=== PATIENT | male | born 1955 | race Caucasian/White ===

== ENCOUNTER 2022-06-09 15:54 | Inpatient (IN) | payer MEDICARE, BC, SELFPAY ==
[2022-06-09] VITALS (51 sets, daily range): BP systolic 138–176; BP diastolic 64–87; PULSE 79–101; RESP 12–20; TEMP 36.6–36.9; O2SAT 97–100; BMI 31.0
--- NOTE | 2022-06-09 17:11 | CRLHL7_ITS ---
For Patients: As a result of the Century Cures Act, medical imaging exams and procedure reports are released immediately into your electronic medical record. You may view this report before your referring provider. If you have questions, please contact your health care provider. INDICATION: SOB TECHNIQUE: Chest 2 views. COMPARISON: None. FINDINGS: Cardiovascular and mediastinum: Heart size and vasculature are normal in caliber and appearance. Mediastinum is within normal limits. Lungs and pleural spaces: Lungs are clear. No sign of infiltrate or mass. No sign of pleural effusion. No pneumothorax. Bones and soft tissues: No significant findings. IMPRESSION: Unremarkable chest. Dictated by: Marquise Tidwell MD @ 06/09/2022 17:51:06 (Electronically Signed)
[2022-06-09 18:02] LABS: Chloride* 107 mmol/L (96-114)
[2022-06-09 18:03] LABS: Potassium* 3.4 mmol/L (3.6-5.1); Sodium* 141 mmol/L (135-149)
[2022-06-09 18:05] LABS: Creatinine* 0.9 mg/dL (0.5-1.5); Est. Creatinine Clearance* 72.66; Estimated Glomerular Filt Rate 94 ml/min
[2022-06-09 18:06] LABS: Blood Urea Nitrogen* 14 mg/dL (7-30); Carbon Dioxide* 25 mmol/L (20-32); Glucose* 113 mg/dL (60-115)
[2022-06-09 18:07] LABS: Calcium* 8.6 mg/dL (8.4-10.6); D Dimer Quantitative* 1.03 ug/ml (0.00-0.50)
[2022-06-09 18:10] LABS: C Reactive Protein* < 0.5 mg/dL (0.5-1.0)
[2022-06-09 18:25] LABS: Albumin* 4.4 g/dL (3.3-5.0); PCR FLU A Negative PCR FLU A (Negative); PCR FLU B Negative PCR FLU B (Negative); PCR RSV Negative PCR RSV (Negative)
[2022-06-09 18:26] LABS: Prothrombin Time 15.9 Seconds
[2022-06-09 18:28] LABS: Alkaline Phosphatase* 57 U/L (40-150); Aspartate Amino Transferase* 20 U/L (12-35); Bilirubin Direct* 0.1 mg/dL (0.0-0.5); Bilirubin Total* 1.1 mg/dL (0.1-1.5); Total Protein* 6.7 g/dL (6.0-8.3)
[2022-06-09 18:29] LABS: Alanine Aminotransferase* 18 U/L (4-50)
[2022-06-09 18:33] LABS: SARS PCR* Negative SARS-CoV-2 (Negative)
[2022-06-09 18:37] LABS: NT Pro B Type NatriureticPept* 629 PG/mL (0-125)
[2022-06-09 18:41] LABS: Troponin I* 0.02 ng/mL (0.01-0.04)
[2022-06-09 19:01] LABS: Basophils Absolute Auto 0.07 K/uL (0.00-0.30); Eosinophils Absolute Auto 0.01 K/uL (0.00-0.50); Eosinophils Percent Auto 0.1 % (0.0-7.0); Hematocrit 18.4 % (37.0-53.0); Immature Granulocytes Abs Auto 0.56 K/uL (0.00-0.30); Lymphocytes Percent Auto 8.5 % (20-44); Mean Corpuscular HGB Conc 27 gm/dL (32-36); Mean Corpuscular Hemoglobin 18 pg (26-34); Mean Corpuscular Volume 69 fL (80-100); Monocytes Percent Auto 28.7 % (0.0-11.0); Neutrophils Absolute Auto 3.73 K/uL (1.7-7.0); Neutrophils Percent Auto 53.7 % (42.0-72.0); RDW Coefficient of Variation % 19.1 % (11.5-15.5); Red Blood Count 2.66 m/uL (4.30-5.90); White Blood Count* 6.96 K/uL (4.50-11.00)
[2022-06-09 19:04] LABS: Hemoglobin* 4.9 gm/dL (13.5-17.5); Platelet Count* 41 K/uL (140-440); Slide Review Reflex Yes
[2022-06-09 19:06] LABS: Slide Review Acceptable Review (Acceptable)
--- NOTE | 2022-06-09 20:01 | ED_ITS ---
HPI - General Adult General Date Seen: 06/09/22 Chief complaint: Weakness Stated complaint: check hemiglobin according to stress test Time Seen by Provider: 06/09/22 16:32 Source: patient History of Present Illness HPI narrative: Patient is a 67-year-old male who has noted shortness of breath particularly with exertion for the past couple of weeks, getting worse. He saw his primary doctor, had been having some left jaw pain as well and a stress test was ordered which he had today. He was able to do a couple of minutes of work, but he notes that he was severely short of breath. He did not have jaw pain during the test. He says actually the jaw pain seemed to be more around his teeth actually, and he relates that to a problem with his gums. Shortness of breath has been getting worse. He denies a cough or fever. He has not had chest pain, has not had any pleuritic pain. He does note swelling in both of his legs which has been getting worse over the past few days. There is no pain in the legs although they are a little bit red. He does note that his feet have been hurting. He denies history of DVT or PE. He was at his stress test today, noted to be pretty pale, and reported that he has had black stools since yest erday. Has not had abdominal pain. Tells me that he had a colonoscopy in the past month or 2 which he said he was told was normal. He has had an upper endoscopy but it has been many years, denies history of previous GI bleeding, ulcers, or other known GI problems. 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 He also says he has been taking Aleve a little more regularly than usual, because of the jaw pain. He denies vomiting any blood. He does not take any blood thinners. He has not had any lightheadedness or fainting. He notes a previous history of prostate cancer, status post prostatectomy. He says he had an MRI and CT scan recently at [facility] looking for residual cancer. Related Data Home Medications Medication Instructions Recorded Confirmed atorvastatin 80 mg tablet 80 mg PO .Bedtime 05/22/22 06/01/22 calcium carbonate 500 mg-vitamin 1 tab PO DAILY 05/22/22 06/01/22 D3 3.125 mcg (125 unit) tablet coenzyme Q10 200 mg capsule 200 mg PO QDAY 05/22/22 06/01/22 cyanocobalamin (vitamin B-12) 5,000 mcg PO DAILY 05/22/22 06/01/22 1,000 mcg tablet escitalopram oxalate 10 mg tablet 10 mg PO DAILY 05/22/22 06/01/22 losartan 100 mg tablet 100 mg PO DAILY 05/22/22 06/01/22 magnesium oxide 400 mg (241.3 mg 400 mg PO DAILY 05/22/22 06/01/22 magnesium) tablet multivitamin 1 tab PO QDAY 05/22/22 06/01/22 omeprazole 20 mg capsule,delayed 20 mg PO DAILY 05/22/22 06/01/22 release polyethylene glycol 3350 17 17 g PO DAILY 05/22/22 06/01/22 gram/dose oral powder gabapentin 300 mg capsule 300 mg PO QDAY 06/01/22 06/01/22 Allergies Allergy/AdvReac Type Severity Reaction Status Date / Time No Known Drug Allergies Allergy Verified 06/01/22 14:32 Review of Systems Status of ROS: Reports: 10 or more systems reviewed and unremarkable except as noted in History and below [facility] Medical History (Updated 06/09/22 @ 23:20 by Samantha Pena MD) Alcoholic fatty liver Loja's esophagus Chronic obstructive pulmonary disease (2013) Chronic right-sided low back pain Erectile dysfunction Gastroesophageal reflux disease History of malignant neoplasm of prostate (03/2011) History of pneumonia (05/2020) Hyperlipidemia Hypertension Osteoarthritis of both hips Pancytopenia Seasonal allergic rhinitis Surgical History History of radical retropubic prostatectomy (07/28/11) History of vasectomy (2006) Family History Mother Heart disease Father Prostate cancer Social History (Updated 06/09/22 @ 21:24 by Marquise Contreras MD) Narrative: , 2 kids, nonsmoker, daily EtOH, [facility] Status: Former smoker How often do you have a drink containing alcohol: 4 or more times a week How many standard drinks containing alcohol do you have on a typical day: 5 or 6 How often do you have six or more drinks on one occasion: Daily or almost daily AUDIT-C Alcohol total score: 10 Non-prescribed substance use: denies use Exam Narrative: Exam Narrative: Vital signs as noted above. In general, an alert, nontoxic male. He is conversant, pale. Head: Normocephalic, atraumatic. Eyes: Pupils are equal reactive. Extraocular movements are full. Conjunctivae are pale. ENT: Mucous membranes are moist. Throat is normal. Neck: Supple without lymphadenopathy. Heart: Regular rate and rhythm. No murmur or rub. Lungs: Clear bilaterally. No increased work of breathing, crackles or wheezes. Abdomen: Soft and nontender. Protuberant. Rectal: Empty vault. Secretions heme positive. No masses. No hemorrhoids, fissure or other external abnormalities. Extremities: Well perfused. Edema in both lower extremities, faint erythema as well. Nontender to palpation. Pulses equal. Neurologic: Patient is alert and oriented to person and place. Speech is fluent. Face is symmetric. Moves all extremities equally. Affect: Normal. Skin: Warm and dry, pale. Well perfused otherwise. Const: Vital Signs, click to edit/add: Vital Signs - 24 hr 06/09/22 16:09 06/09/22 17:21 06/09/22 17:22 Temperature 98.0 F Pulse Rate 86 89 Pulse Rate [Right Pulse Oximeter] 98 Respiratory Rate 18 Blood Pressure 168/76 H Blood Pressure [Ri ght Upper Arm] 172/87 H Pulse Oximetry 98 97 97 Oxygen Delivery Me thod Room Air 06/09/22 17:30 06/09/22 17:44 06/09/22 17:45 Temperature Pulse Rate 90 101 H 91 Pulse Rate [Right Pulse Oximeter] Respiratory Rate Blood Pressure 151/79 H Blood Pressure [Ri ght Upper Arm] Pulse Oximetry 99 99 100 Oxygen Delivery Me thod 06/09/22 18:00 06/09/22 18:02 06/09/22 18:03 Temperature Pulse Rate 87 90 89 Pulse Rate [Right Pulse Oximeter] Respiratory Rate Blood Pressure 168/75 H Blood Pressure [Ri ght Upper Arm] Pulse Oximetry 98 98 98 Oxygen Delivery Me thod 06/09/22 18:30 06/09/22 18:31 06/09/22 20:01 Temperature 97.9 F Pulse Rate 88 91 86 Pulse Rate [Right Pulse Oximeter] Respiratory Rate 14 Blood Pressure 162/78 H 142/81 H Blood Pressure [Ri ght Upper Arm] Pulse Oximetry 99 98 97 Oxygen Delivery Me thod 06/09/22 20:20 06/09/22 18:32 06/09/22 19:00 Temperature 98.2 F Pulse Rate 86 92 97 Pulse Rate [Right Pulse Oximeter] Respiratory Rate 16 Blood Pressure 169/74 H Blood Pressure [Ri ght Upper Arm] Pulse Oximetry 98 98 98 Oxygen Delivery Me thod 06/09/22 19:01 06/09/22 19:30 06/09/22 19:32 Temperature Pulse Rate 96 87 87 Pulse Rate [Right Pulse Oximeter] Respiratory Rate Blood Pressure 170/78 H 160/80 H Blood Pressure [Ri ght Upper Arm] Pulse Oximetry 97 98 98 Oxygen Delivery Me thod 06/09/22 20:00 06/09/22 20:01 06/09/22 20:16 Temperature Pulse Rate 91 94 89 Pulse Rate [Right Pulse Oximeter] Respiratory Rate Blood Pressure 142/81 H 160/78 H Blood Pressure [Ri ght Upper Arm] Pulse Oximetry 99 98 99 Oxygen Delivery Me thod 06/09/22 20:25 06/09/22 20:30 06/09/22 20:32 Temperature Pulse Rate 85 87 89 Pulse Rate [Right Pulse Oximeter] Respiratory Rate Blood Pressure 169/74 H 162/74 H Blood Pressure [Ri ght Upper Arm] Pulse Oximetry 97 97 98 Oxygen Delivery Me thod 06/09/22 21:10 06/09/22 21:35 06/09/22 21:41 Temperature 98.5 F 98.2 F 98.5 F Pulse Rate 84 82 83 Pulse Rate [Right Pulse Oximeter] Respiratory Rate 12 18 18 Blood Pressure 170/79 H 175/76 H 175/76 H Blood Pressure [Ri ght Upper Arm] Pulse Oximetry 98 97 97 Oxygen Delivery Me thod 06/09/22 20:33 06/09/22 20:47 06/09/22 21:00 Temperature Pulse Rate 91 88 89 Pulse Rate [Right Pulse Oximeter] Respiratory Rate Blood Pressure 158/72 H Blood Pressure [Ri ght Upper Arm] Pulse Oximetry 98 98 97 Oxygen Delivery Me thod 06/09/22 21:02 06/09/22 21:14 06/09/22 21:17 Temperature Pulse Rate 87 87 83 Pulse Rate [Right Pulse Oximeter] Respiratory Rate Blood Pressure 176/80 H 170/79 H 159/68 H Blood Pressure [Ri ght Upper Arm] Pulse Oximetry 97 97 97 Oxygen Delivery Me thod 06/09/22 21:30 06/09/22 21:31 06/09/22 21:56 Temperature 98.3 F Pulse Rate 92 91 83 Pulse Rate [Right Pulse Oximeter] Respiratory Rate 20 Blood Pressure 175/76 H 140/71 H Blood Pressure [Ri ght Upper Arm] Pulse Oximetry 98 97 98 Oxygen Delivery Me thod 06/09/22 22:10 06/09/22 22:42 06/09/22 23:04 Temperature 97.9 F 98.5 F 98.2 F Pulse Rate 85 81 85 Pulse Rate [Right Pulse Oximeter] Respiratory Rate 18 16 18 Blood Pressure 152/64 H 163/78 H 169/82 H Blood Pressure [Ri ght Upper Arm] Pulse Oximetry 98 97 98 Oxygen Delivery Me thod Documenting provider has reviewed patient's vital signs: yes Course Course Hospital Course: Following initial evaluation, an IV was placed. He had an EKG which by my review showed a normal sinus rhythm, ventricular rate of 95 beats per minute. He has a 0.[address] depression in leads V 3 through V6, I do not have a previous EKG for comparison. Troponin was negative however. His labs returned in unusual order, apparently the cbc was misplaced and so that returned last. His hemoglobin though ultimately returned at 4.9, and platelet count was 41. Review of his records shows his last blood work to have been done in August of 2021 at which time his hemoglobin was 11.3 and platelets were 90,000. I do think he has probably had some degree of slow blood loss over a period of time, and perhaps more acutely over the past day or 2 when he developed what sounds like melena. I do not see melena on rectal exam currently however. He has not had any further stools while here in the ER. His INR is 1.2. His D-dimer did return elevated at 1.03. I am going to order Dopplers of his lower extremities given the edema I see there. However, my suspicion for pulmonary embolism as a cause for shortness of breath is rather low. He is not reporting any chest pain, he is not tachycardic or tachypneic, he is actually not hypoxic either. I think his shortness of breath is almost certainly related to his significant anemia. I did order 2 units of packed red cells as well as platelets given his thrombocytopenia in the setting of active bleeding. His BUN and creatinine are normal. His potassium is 3.4 otherwise electrolytes are normal. LFTs are actually normal as well. BNP is somewhat elevated at 629. TSH is normal. Plan at this time will be admission to the hospital for transfusion and planned endoscopy. Given recent colonoscopy without significant findings, alcohol and NSAID use, and reported melena, I suspect this is likely an upper GI bleed. There are no beds in the hospital at this time so he will remain in the emergency department overnight and hopefully there will be space in the hospital tomorrow. He has remained hemodynamically stable and without further complaints while in the emergency department. Dopplers of his bilateral lower extremities did end up showing clot in 1 of the posterior tibial veins in his right leg. Other veins were normal. At this time, I have not pursued CT scanning of the chest. Again, he does not have hypoxia, tachycardia, pleuritic chest pain, or other findings to suggest significant pulmonary embolism. Troponin is negative. I think with his thrombocytopenia, GI bleed and severe anemia, that anticoagulation at this time is not an option. I did discuss with [facility] ER physician and interventional radiologist as to whether not a [place] filter would be indicated given that he has a small amount of distal clot only, and the interventional radiologist said they would not place a Sondra filter for this. He recommended serial ultrasounds only. I did call local hospitals to see if there was any availability of beds given this additional clinical finding, but there are no available beds, and therefore patient will be admitted here. We will continue with serial ultrasounds, transfusion, endoscopy as planned. If the DVT is progressive, will need to reassess in terms of finding somewhere to have a Sondra filter placed. Consultations Consultation #1: Dr. Malin General surgery Consultation #2: [facility] Interventional Radiology Vital Signs Vital signs: Initial Vital Signs Temperature 98.0 F 06/09/22 16:09 Temperature Source Temporal Artery Scan 06/09/22 16:09 Pulse Rate 98 06/09/22 16:09 Respiratory Rate 18 06/09/22 16:09 Blood Pressure 172/87 H 06/09/22 16:09 Blood Pressure Mean 115 06/09/22 16:09 Blood Pressure Position Sitting 06/09/22 16:09 Pulse Oximetry 98 06/09/22 16:09 Oxygen Delivery Method 06/09/22 16:09 Vital Signs Temperature 98.0 F 06/09/22 16:09 Pulse Rate 98 06/09/22 16:09 Respiratory Rate 18 06/09/22 16:09 Blood Pressure 172/87 H 06/09/22 16:09 Pulse Oximetry 98 06/09/22 16:09 Oxygen Delivery Method 06/09/22 16:09 Temperature 98.2 F 06/09/22 23:04 Pulse Rate 85 06/09/22 23:04 Respiratory Rate 18 06/09/22 23:04 Blood Pressure 169/82 H 06/09/22 23:04 Pulse Oximetry 98 06/09/22 23:04 Oxygen Delivery Method 06/09/22 16:09 Medical Decision Making Lab Data Labs: Lab Results 06/09/22 06/09/22 06/09/22 Range/Units 17:30 17:30 17:30 WBC 6.96 (4.50-11.00) K/uL RBC 2.66 L (4.30-5.90) m/uL Hgb 4.9 L* (13.5-17.5) gm/dL Hct 18.4 L (37.0-53.0) % MCV 69 L (80-100) fL MCH 18 L (26-34) pg MCHC 27 L (32-36) gm/dL RDW Coeff of Poonam 19.1 H (11.5-15.5) % Plt Count 41 L* (140-440) K/uL Neut % (Auto) 53.7 (42.0-72.0) % Lymph % (Auto) 8.5 L (20-44) % [place] % (Auto) 28.7 H (0.0-11.0) % Eos % (Auto) 0.1 (0.0-7.0) % Baso % (Auto) 1.0 (0.0-3.0) % Neut # (Auto) 3.73 (1.7-7.0) K/uL Lymph # (Auto) 0.60 L (0.90-2.90) K/uL [place] # (Auto) 2.00 H (0.00-0.90) K/UL Eos # (Auto) 0.01 (0.00-0.50) K/uL Baso # (Auto) 0.07 (0.00-0.30) K/uL Abs Immat Gran (auto) 0.56 H (0.00-0.30) K/uL Imm/Tot Granulo (auto) 8.0 % Diff Slide Review Acceptable Review (Acceptable) INR (0.91-1.10) D-Dimer Quant (PE/DVT) 1.03 H (0.00-0.50) ug/ml Sodium 141 (135-149) mmol/L Potassium 3.4 L (3.6-5.1) mmol/L Chloride 107 (96-114) mmol/L Carbon Dioxide 25 (20-32) mmol/L BUN 14 (7-30) mg/dL Creatinine 0.9 (0.5-1.5) mg/dL Estimated Creat Clear 72.66 Estimated GFR 94 ml/min Glucose 113 (60-115) mg/dL Calcium 8.6 (8.4-10.6) mg/dL Total Bilirubin (0.1-1.5) mg/dL Direct Bilirubin (0.0-0.5) mg/dL AST (12-35) U/L ALT (4-50) U/L Alkaline Phosphatase (40-150) U/L Troponin I (0.01-0.04) ng/mL C-Reactive Protein < 0.5 L (0.5-1.0) mg/dL NT-Pro-B Natriuret Pep (0-125) PG/mL Total Protein (6.0-8.3) g/dL Albumin (3.3-5.0) g/dL TSH (0.270-4.200) uIU/mL SARS-CoV-2 (PCR) (Negative) Influenza Type A (PCR) (Negative) Influenza Type B (PCR) (Negative) RSV (PCR) (Negative) Blood Type Antibody Screen Crossmatch (AHG) 06/09/22 06/09/22 06/09/22 Range/Units 17:30 17:30 17:30 WBC (4.50-11.00) K/uL RBC (4.30-5.90) m/uL Hgb (13.5-17.5) gm/dL Hct (37.0-53.0) % MCV (80-100) fL MCH (26-34) pg MCHC (32-36) gm/dL RDW Coeff of Poonam (11.5-15.5) % Plt Count (140-440) K/uL Neut % (Auto) (42.0-72.0) % Lymph % (Auto) (20-44) % [place] % (Auto) (0.0-11.0) % Eos % (Auto) (0.0-7.0) % Baso % (Auto) (0.0-3.0) % Neut # (Auto) (1.7-7.0) K/uL Lymph # (Auto) (0.90-2.90) K/uL [place] # (Auto) (0.00-0.90) K/UL Eos # (Auto) (0.00-0.50) K/uL Baso # (Auto) (0.00-0.30) K/uL Abs Immat Gran (auto) (0.00-0.30) K/uL Imm/Tot Granulo (auto) % Diff Slide Review (Acceptable) INR 1.20 H (0.91-1.10) D-Dimer Quant (PE/DVT) (0.00-0.50) ug/ml Sodium (135-149) mmol/L Potassium (3.6-5.1) mmol/L Chloride (96-114) mmol/L Carbon Dioxide (20-32) mmol/L BUN (7-30) mg/dL Creatinine (0.5-1.5) mg/dL Estimated Creat Clear Estimated GFR ml/min Glucose (60-115) mg/dL Calcium (8.4-10.6) mg/dL Total Bilirubin 1.1 (0.1-1.5) mg/dL Direct Bilirubin 0.1 (0.0-0.5) mg/dL AST 20 (12-35) U/L ALT 18 (4-50) U/L Alkaline Phosphatase 57 (40-150) U/L Troponin I 0.02 (0.01-0.04) ng/mL C-Reactive Protein (0.5-1.0) mg/dL NT-Pro-B Natriuret Pep 629 H (0-125) PG/mL Total Protein 6.7 (6.0-8.3) g/dL Albumin 4.4 (3.3-5.0) g/dL TSH (0.270-4.200) uIU/mL SARS-CoV-2 (PCR) Negative SARS-CoV-2 (Negative) Influenza Type A (PCR) Negative PCR FLU A (Negative) Influenza Type B (PCR) Negative PCR FLU B (Negative) RSV (PCR) Negative PCR RSV (Negative) Blood Type Antibody Screen Crossmatch (AHG) 06/09/22 06/09/22 Range/Units 17:30 17:30 WBC (4.50-11.00) K/uL RBC (4.30-5.90) m/uL Hgb (13.5-17.5) gm/dL Hct (37.0-53.0) % MCV (80-100) fL MCH (26-34) pg MCHC (32-36) gm/dL RDW Coeff of Poonam (11.5-15.5) % Plt Count (140-440) K/uL Neut % (Auto) (42.0-72.0) % Lymph % (Auto) (20-44) % [place] % (Auto) (0.0-11.0) % Eos % (Auto) (0.0-7.0) % Baso % (Auto) (0.0-3.0) % Neut # (Auto) (1.7-7.0) K/uL Lymph # (Auto) (0.90-2.90) K/uL [place] # (Auto) (0.00-0.90) K/UL Eos # (Auto) (0.00-0.50) K/uL Baso # (Auto) (0.00-0.30) K/uL Abs Immat Gran (auto) (0.00-0.30) K/uL Imm/Tot Granulo (auto) % Diff Slide Review (Acceptable) INR (0.91-1.10) D-Dimer Quant (PE/DVT) (0.00-0.50) ug/ml Sodium (135-149) mmol/L Potassium (3.6-5.1) mmol/L Chloride (96-114) mmol/L Carbon Dioxide (20-32) mmol/L BUN (7-30) mg/dL Creatinine (0.5-1.5) mg/dL Estimated Creat Clear Estimated GFR ml/min Glucose (60-115) mg/dL Calcium (8.4-10.6) mg/dL Total Bilirubin (0.1-1.5) mg/dL Direct Bilirubin (0.0-0.5) mg/dL AST (12-35) U/L ALT (4-50) U/L Alkaline Phosphatase (40-150) U/L Troponin I (0.01-0.04) ng/mL C-Reactive Protein (0.5-1.0) mg/dL NT-Pro-B Natriuret Pep (0-125) PG/mL Total Protein (6.0-8.3) g/dL Albumin (3.3-5.0) g/dL TSH 3.380 (0.270-4.200) uIU/mL SARS-CoV-2 (PCR) (Negative) Influenza Type A (PCR) (Negative) Influenza Type B (PCR) (Negative) RSV (PCR) (Negative) Blood Type O Negative Antibody Screen NEGATIVE Crossmatch (AHG) See Detail Discharge Plan Discharge Clinical Impression: Thrombocytopenia, Calf DVT (deep venous thrombosis), Acute GI bleeding Patient Disposition: Admitted As Inpatient Condition: Improved
--- NOTE | 2022-06-09 20:05 | CRLHL7_ITS ---
For Patients: As a result of the Century Cures Act, medical imaging exams and procedure reports are released immediately into your electronic medical record. You may view this report before your referring provider. If you have questions, please contact your health care provider. INDICATION: Leg pain and swelling. TECHNIQUE: Ultrasound venous duplex bilateral lower extremity. Compression venous exam was performed using daniel-scale, color Doppler, and spectral Doppler analysis. COMPARISON: None. FINDINGS: Deep veins: DVT within 1 of 2 right posterior tibial veins. Sonographic imaging otherwise demonstrates the right and left common femoral, deep femoral, superficial femoral, popliteal, posterior tibial veins to be fully compressible with normal color Doppler blood flow. Superficial veins: Greater saphenous veins are fully compressible. No popliteal cyst. IMPRESSION: DVT within 1 of the 2 right posterior tibial veins. Findings verbally communicated with Dr. Pena at 9:27 p.m. June 09, 2022. Findings verified by read back. Dictated by Marquise Braxton MD @ 06/09/2022 9:28:07 PM (Electronically Signed)
[2022-06-09] MEDS: 0.9 % SODIUM CHLORIDE 250 ml IV ×2 (20:10→21:40)
[2022-06-09] MEDS: PANTOPRAZOLE SODIUM 40 MG INJ IVP (23:13)
[2022-06-10] VITALS (21 sets, daily range): BP systolic 145–177; BP diastolic 57–88; PULSE 74–103; RESP 13–20; TEMP 36.4–37.1; O2SAT 94–100; BMI 33.0
[2022-06-10] MEDS: 0.9 % SODIUM CHLORIDE 250 ml IV (02:00)
--- NOTE | 2022-06-10 02:30 | P.IMPN_ITS ---
Progress Note: A&P Assessment and plan (1) Acute GI bleeding: Status: Acute (2) Thrombocytopenia: Status: Acute (3) Calf DVT (deep venous thrombosis): Status: Acute Plan E hospitalist collaboration: I have discussed in detail with ED Dr. Pena. 67-year-old male admitted with anemia ABL, fatigue, right calf DVT. Patient has had some shortness of breath and left-sided jaw pain for couple weeks. He had dental evaluation and no infection of teeth but have some gum bleeding after that procedure. With jaw pain and sob and no infection in the teeth, this prompted plan for cardiac stress test which occurred today and per report no ischemic findings, but patient was quite fatigued and was pale and thus test had limitation with sob and was referred to the ED. In the ED was found to have a hemoglobin of 5. Patient did also mention to the cardiac team that he had been having some black stools over the last few days. No prior history of ulcers. He states he has had a prior EGD years ago. He states he had a colonoscopy a couple months ago. I did find in the Porphyrio system 5.67 colonoscopy in October 2021. Patient has not had any hematemesis. He reports he does drink alcohol his last drink was last evening around 7 PM. No history of withdrawal symptoms or withdrawal seizures. Due to the left jaw pain he has been taking Aleve. And he had also been started on baby aspirin for cardiac health on Wednesday. He does have thrombocytopenia, patient thinks he has had that in the past. No current nausea, vomiting, abdominal pain, chest pain. He has not had any bloody stools since admission. No fever or chills. No cough. He does get short of breath with activity. He had prostate cancer prostatectomy years ago. Laboratory/imaging in the ED: WBC 6.96, hemoglobin 4.9, hematocrit 18.4, MCV 69, platelets 41 (90 on 11/14/2020). INR 1.20. D-dimer elevated 1.03. Sodium 141, potassium 3.4, chloride 107, CO2 25, BUN 14, creatinine 0.9, glucose 113, calcium 8.6, total bilirubin 1.1, AST 20, ALT 18, alk phosphatase 57, troponin I 0.02. CRP low at less than 0.5. proBNP 629. Total protein 6.7, albumin 4.4. TSH 3.380. COVID- 19 negative. Influenza A negative. Influenza B negative. RSV negative. Chest x-ray no infiltrates or effusions. Venous duplex right below the knee DVT in 1 of 2 right posterior tibial veins. In the ED he was given 2 units packed RBCs, platelet transfusion. Telemedicine exam Vitals reviewed No apparent distress, alert, oriented x3, cooperative Head atraumatic Speech clear Follows commands, no lateralizing weakness, neurologically intact Pupils equal and reactive, no scleral icterus Lips and mouth are dry Neck trachea midline Heart regular rate and rhythm, no murmurs Lungs clear bilateral no crackles no wheezes Abdomen bowel sounds are positive, soft, nondistended, nontender for nursing palpation Lower extremities moderate pitting edema and greater on the right compared to the left and also some erythema appears less likely cellulitis and more venous stasis from edema Skin dry, pale Summary: 67-year-old male admitted from the ED for ABL anemia, right DVT, fatigue. Assessment and plan: ABL anemia Fatigue Thrombocytopenia Alcohol dependence Dyspnea Right posterior tibial vein DVT: Plan: ABL anemia, currently hemodynamically stable, no active jaqueline bloody stools seen since admission. Received packed RBC 2 units in the ED and will repeat hemoglobin. Also received pack of platelets being less than 50 and drop in Hg/bleeding. Repeat platelet level this AM. INR not significantly elevated but was 1.20 and LFTs were not elevated. But with alcohol use did empirically place the patient on Rocephin in case would have underlying esophageal varices. Planned octreotide drip until has EGD, but no drip available and only IV push thus will hold for the time being as patient is currently hemodynamically stable and not having any hematemesis and INR not significantly elevated. PPI was given in the ED and will continue twice daily. Keep n.p.o. for likely EGD today. If EGD unremarkable may need to consider colonoscopy or video capsule. Patient also has a right DVT below the knee in the posterior tibial vein and therefore lower risk for PE. ED team had reviewed with IR and IR and would not recommend any procedures with anemia and hold on anticoagulation with anemia and plan serial venous duplex once a week to monitor for any progression. Patient tells me he is very active on his feet and goes up and down stairs and has not been sedentary. He has never had a prior DVT. He had prostate cancer years ago that was treated, but with acute DVT this warrants further age-related malignancy work-up after acute anemia treated, would consider ct chest/abd/pelvis (had polyp removed on last colonoscopy). He did have COVID 1 year ago. Alcohol dependence, CIWA and thiamine initiated, monitor for withdrawl. Discussed cessation with anemia and risk of liver disease. Will hold aspirin at this time. Hold any NSAIDs such as Aleve at this time. Reported cardiac stress test negative for ischemia but limited test with sob during test. Patient has leg edema and some erythema but less likely cellulitis but more related to edema/stasis changes. Home medications reviewed and further med reconciliation in the a.m.: Atorvastatin, calcium carbonate, coenzyme Q, vitamin B12, ecitalopram, gabapentin, losartan, magnesium oxide, multivitamin, Prilosec, MiraLAX CODE STATUS: Full code Please call E hospitalist with questions Subjective Date Seen: 06/10/22 Exam Const: Vital Signs, click to edit/add: Vital Signs - 24 hr 06/09/22 16:09 06/09/22 17:21 06/09/22 17:22 Temperature 98.0 F Pulse Rate 86 89 Pulse Rate [Left P ulse Oximeter] Pulse Rate [Right Pulse Oximeter] 98 Respiratory Rate 18 Blood Pressure 168/76 H Blood Pressure [Le ft Arm] Blood Pressure [Ri ght Upper Arm] 172/87 H Pulse Oximetry 98 97 97 Oxygen Delivery Me thod Room Air 06/09/22 17:30 06/09/22 17:44 06/09/22 17:45 Temperature Pulse Rate 90 101 H 91 Pulse Rate [Left P ulse Oximeter] Pulse Rate [Right Pulse Oximeter] Respiratory Rate Blood Pressure 151/79 H Blood Pressure [Le ft Arm] Blood Pressure [Ri ght Upper Arm] Pulse Oximetry 99 99 100 Oxygen Delivery Me thod 06/09/22 18:00 06/09/22 18:02 06/09/22 18:03 Temperature Pulse Rate 87 90 89 Pulse Rate [Left P ulse Oximeter] Pulse Rate [Right Pulse Oximeter] Respiratory Rate Blood Pressure 168/75 H Blood Pressure [Le ft Arm] Blood Pressure [Ri ght Upper Arm] Pulse Oximetry 98 98 98 Oxygen Delivery Me thod 06/09/22 18:30 06/09/22 18:31 06/09/22 20:01 Temperature 97.9 F Pulse Rate 88 91 86 Pulse Rate [Left P ulse Oximeter] Pulse Rate [Right Pulse Oximeter] Respiratory Rate 14 Blood Pressure 162/78 H 142/81 H Blood Pressure [Le ft Arm] Blood Pressure [Ri ght Upper Arm] Pulse Oximetry 99 98 97 Oxygen Delivery Me thod 06/09/22 20:20 06/09/22 18:32 06/09/22 19:00 Temperature 98.2 F Pulse Rate 86 92 97 Pulse Rate [Left P ulse Oximeter] Pulse Rate [Right Pulse Oximeter] Respiratory Rate 16 Blood Pressure 169/74 H Blood Pressure [Le ft Arm] Blood Pressure [Ri ght Upper Arm] Pulse Oximetry 98 98 98 Oxygen Delivery Me thod 06/09/22 19:01 06/09/22 19:30 06/09/22 19:32 Temperature Pulse Rate 96 87 87 Pulse Rate [Left P ulse Oximeter] Pulse Rate [Right Pulse Oximeter] Respiratory Rate Blood Pressure 170/78 H 160/80 H Blood Pressure [Le ft Arm] Blood Pressure [Ri ght Upper Arm] Pulse Oximetry 97 98 98 Oxygen Delivery Me thod 06/09/22 20:00 06/09/22 20:01 06/09/22 20:16 Temperature Pulse Rate 91 94 89 Pulse Rate [Left P ulse Oximeter] Pulse Rate [Right Pulse Oximeter] Respiratory Rate Blood Pressure 142/81 H 160/78 H Blood Pressure [Le ft Arm] Blood Pressure [Ri ght Upper Arm] Pulse Oximetry 99 98 99 Oxygen Delivery Me thod 06/09/22 20:25 06/09/22 20:30 06/09/22 20:32 Temperature Pulse Rate 85 87 89 Pulse Rate [Left P ulse Oximeter] Pulse Rate [Right Pulse Oximeter] Respiratory Rate Blood Pressure 169/74 H 162/74 H Blood Pressure [Le ft Arm] Blood Pressure [Ri ght Upper Arm] Pulse Oximetry 97 97 98 Oxygen Delivery Me thod 06/09/22 21:10 06/09/22 21:35 06/09/22 21:41 Temperature 98.5 F 98.2 F 98.5 F Pulse Rate 84 82 83 Pulse Rate [Left P ulse Oximeter] Pulse Rate [Right Pulse Oximeter] Respiratory Rate 12 18 18 Blood Pressure 170/79 H 175/76 H 175/76 H Blood Pressure [Le ft Arm] Blood Pressure [Ri ght Upper Arm] Pulse Oximetry 98 97 97 Oxygen Delivery Me thod 06/09/22 20:33 06/09/22 20:47 06/09/22 21:00 Temperature Pulse Rate 91 88 89 Pulse Rate [Left P ulse Oximeter] Pulse Rate [Right Pulse Oximeter] Respiratory Rate Blood Pressure 158/72 H Blood Pressure [Le ft Arm] Blood Pressure [Ri ght Upper Arm] Pulse Oximetry 98 98 97 Oxygen Delivery Me thod 06/09/22 21:02 06/09/22 21:14 06/09/22 21:17 Temperature Pulse Rate 87 87 83 Pulse Rate [Left P ulse Oximeter] Pulse Rate [Right Pulse Oximeter] Respiratory Rate Blood Pressure 176/80 H 170/79 H 159/68 H Blood Pressure [Le ft Arm] Blood Pressure [Ri ght Upper Arm] Pulse Oximetry 97 97 97 Oxygen Delivery Me thod 06/09/22 21:30 06/09/22 21:31 06/09/22 21:56 Temperature 98.3 F Pulse Rate 92 91 83 Pulse Rate [Left P ulse Oximeter] Pulse Rate [Right Pulse Oximeter] Respiratory Rate 20 Blood Pressure 175/76 H 140/71 H Blood Pressure [Le ft Arm] Blood Pressure [Ri ght Upper Arm] Pulse Oximetry 98 97 98 Oxygen Delivery Me thod 06/09/22 22:10 06/09/22 22:42 06/09/22 23:04 Temperature 97.9 F 98.5 F 98.2 F Pulse Rate 85 81 85 Pulse Rate [Left P ulse Oximeter] Pulse Rate [Right Pulse Oximeter] Respiratory Rate 18 16 18 Blood Pressure 152/64 H 163/78 H 169/82 H Blood Pressure [Le ft Arm] Blood Pressure [Ri ght Upper Arm] Pulse Oximetry 98 97 98 Oxygen Delivery Me thod 06/09/22 23:33 06/09/22 21:32 06/09/22 21:47 Temperature 98.3 F Pulse Rate 81 88 84 Pulse Rate [Left P ulse Oximeter] Pulse Rate [Right Pulse Oximeter] Respiratory Rate 16 Blood Pressure 168/79 H 159/65 H Blood Pressure [Le ft Arm] Blood Pressure [Ri ght Upper Arm] Pulse Oximetry 97 98 97 Oxygen Delivery Me thod 06/09/22 21:56 06/09/22 22:00 06/09/22 22:02 Temperature Pulse Rate 92 85 87 Pulse Rate [Left P ulse Oximeter] Pulse Rate [Right Pulse Oximeter] Respiratory Rate Blood Pressure 140/71 H 138/69 Blood Pressure [Le ft Arm] Blood Pressure [Ri ght Upper Arm] Pulse Oximetry 97 97 98 Oxygen Delivery Me thod 06/09/22 22:11 06/09/22 22:16 06/09/22 22:30 Temperature Pulse Rate 83 83 80 Pulse Rate [Left P ulse Oximeter] Pulse Rate [Right Pulse Oximeter] Respiratory Rate Blood Pressure 152/64 H 165/76 H Blood Pressure [Le ft Arm] Blood Pressure [Ri ght Upper Arm] Pulse Oximetry 97 97 97 Oxygen Delivery Me thod 06/09/22 22:32 06/09/22 22:46 06/09/22 23:02 Temperature Pulse Rate 83 82 93 Pulse Rate [Left P ulse Oximeter] Pulse Rate [Right Pulse Oximeter] Respiratory Rate Blood Pressure 154/72 H 163/78 H Blood Pressure [Le ft Arm] Blood Pressure [Ri ght Upper Arm] Pulse Oximetry 98 97 97 Oxygen Delivery Me thod 06/09/22 23:04 06/09/22 23:30 06/09/22 23:31 Temperature Pulse Rate 81 79 80 Pulse Rate [Left P ulse Oximeter] Pulse Rate [Right Pulse Oximeter] Respiratory Rate Blood Pressure 169/82 H 168/79 H Blood Pressure [Le ft Arm] Blood Pressure [Ri ght Upper Arm] Pulse Oximetry 98 97 97 Oxygen Delivery Me thod 06/10/22 00:00 06/10/22 00:02 06/10/22 00:51 Temperature 97.8 F Pulse Rate 77 84 Pulse Rate [Left P ulse Oximeter] 83 Pulse Rate [Right Pulse Oximeter] Respiratory Rate 20 Blood Pressure 169/88 H Blood Pressure [Le ft Arm] 174/86 H Blood Pressure [Ri ght Upper Arm] Pulse Oximetry 94 95 97 Oxygen Delivery Me thod Room Air 06/10/22 02:08 Temperature 97.8 F Pulse Rate 80 Pulse Rate [Left P ulse Oximeter] Pulse Rate [Right Pulse Oximeter] Respiratory Rate 18 Blood Pressure 159/77 H Blood Pressure [Le ft Arm] Blood Pressure [Ri ght Upper Arm] Pulse Oximetry 96 Oxygen Delivery Me thod Labs Labs: Laboratory Results - last 24 hr 06/09/22 06/09/22 06/09/22 17:30 17:30 17:30 WBC 6.96 RBC 2.66 L Hgb 4.9 L* Hct 18.4 L MCV 69 L MCH 18 L MCHC 27 L RDW Coeff of Poonam 19.1 H Plt Count 41 L* Neut % (Auto) 53.7 Lymph % (Auto) 8.5 L Woodruff % (Auto) 28.7 H Eos % (Auto) 0.1 Baso % (Auto) 1.0 Neut # (Auto) 3.73 Lymph # (Auto) 0.60 L Woodruff # (Auto) 2.00 H Eos # (Auto) 0.01 Baso # (Auto) 0.07 Abs Immat Gran (auto) 0.56 H Imm/Tot Granulo (auto) 8.0 Diff Slide Review Acceptable Review INR D-Dimer Quant (PE/DVT) 1.03 H Sodium 141 Potassium 3.4 L Chloride 107 Carbon Dioxide 25 BUN 14 Creatinine 0.9 Estimated Creat Clear 72.66 Estimated GFR 94 Glucose 113 Calcium 8.6 Total Bilirubin Direct Bilirubin AST ALT Alkaline Phosphatase Troponin I C-Reactive Protein < 0.5 L NT-Pro-B Natriuret Pep Total Protein Albumin TSH SARS-CoV-2 (PCR) Influenza Type A (PCR) Influenza Type B (PCR) RSV (PCR) Blood Type Antibody Screen Crossmatch ([facility]) 06/09/22 06/09/22 06/09/22 17:30 17:30 17:30 WBC RBC Hgb Hct MCV MCH MCHC RDW Coeff of [place]am Plt Count Neut % (Auto) Lymph % (Auto) Woodruff % (Auto) Eos % (Auto) Baso % (Auto) Neut # (Auto) Lymph # (Auto) Woodruff # (Auto) Eos # (Auto) Baso # (Auto) Abs Immat Gran (auto) Imm/Tot Granulo (auto) Diff Slide Review INR 1.20 H D-Dimer Quant (PE/DVT) Sodium Potassium Chloride Carbon Dioxide BUN Creatinine Estimated Creat Clear Estimated GFR Glucose Calcium Total Bilirubin 1.1 Direct Bilirubin 0.1 AST 20 ALT 18 Alkaline Phosphatase 57 Troponin I 0.02 C-Reactive Protein NT-Pro-B Natriuret Pep 629 H Total Protein 6.7 Albumin 4.4 TSH SARS-CoV-2 (PCR) Negative SARS-CoV-2 Influenza Type A (PCR) Negative PCR FLU A Influenza Type B (PCR) Negative PCR FLU B RSV (PCR) Negative PCR RSV Blood Type Antibody Screen Crossmatch ([facility]) 06/09/22 06/09/22 17:30 17:30 WBC RBC Hgb Hct MCV MCH MCHC RDW Coeff of P[place]am Plt Count Neut % (Auto) Lymph % (Auto) Woodruff % (Auto) Eos % (Auto) Baso % (Auto) Neut # (Auto) Lymph # (Auto) Woodruff # (Auto) Eos # (Auto) Baso # (Auto) Abs Immat Gran (auto) Imm/Tot Granulo (auto) Diff Slide Review INR D-Dimer Quant (PE/DVT) Sodium Potassium Chloride Carbon Dioxide BUN Creatinine Estimated Creat Clear Estimated GFR Glucose Calcium Total Bilirubin Direct Bilirubin AST ALT Alkaline Phosphatase Troponin I C-Reactive Protein NT-Pro-B Natriuret Pep Total Protein Albumin TSH 3.380 SARS-CoV-2 (PCR) Influenza Type A (PCR) Influenza Type B (PCR) RSV (PCR) Blood Type O Negative Antibody Screen NEGATIVE Crossmatch ([facility]) See Detail
[2022-06-10] MEDS: 0.9 % SODIUM CHLORIDE 1000 ml 1,000 ML 50 ML IV (03:50)
[2022-06-10] MEDS: cefTRIAXone 1 GM in 0.9 % SODIUM CHLORIDE Mini-bag 100 ML IVPB (03:50)
--- NOTE | 2022-06-10 05:43 | PC.NURSE ---
Admission note: Pt arrived at the unit at 0040 on W/C accompanied by a staff member from ER. Conscious, alert and oriented on arrival. Denied pain, SOB, N/V. 1 Pint of platelet set up as prescribed. No s/s of bleeding noted. Pt is independent in room. NPO status maintained for possible endoscopy today. Pt oriented to room and educated on hospital protocols. Due treatment given.
--- NOTE | 2022-06-10 07:48 | PM.IMHP1 ---
Hospitalist- H&P: HPI History of Present Illness Date Seen: 06/10/22 Chief complaint: check hemiglobin according to stress test Narrative: Jesus Elder is a 67 year old male who presented to the ER for severe dyspnea noted during outpatient stress test. Patient endorses feeling poorly for the last 1-2 weeks. He started having intermittent dyspnea and LE edema about 7-10 days ago. Saw PCP (Ben), started ASA and scheduled stress test. Then began having significant fatigue and worsening dyspnea, progressed in the last 24 hours (couldn't even tie his own shoes without dyspnea). Over the past 5-7 days, started noting melena. No BRBPR, reassuring colonscopy at [facility] in October 2021. Yesterday, presented for his stress test, which was aborted for dyspnea, then patient was sent to ED. ER Course and Findings: - Hgb 4.9, transfused 2U PRBCs - platelets 41, transfused 1U platelets - started on PPI - LE ultrasound obtained given lower extremity edema, noting DVT within 1 of the 2 right posterior tibial veins - Dr. Pena, EM physician, discussed the case with Interventional Radiology at [facility], who recommend serial ultrasounds since anticoagulation is contraindicated at this time Admitted overnight by [facility] telehospitalist. This morning, patient is feeling better after transfusion. He denies abdominal pain or chest pain. He has no dyspnea at rest. Has not had any BMs since admission. No vomiting. His PCP is Dr. Contreras locally. Past medical, surgical, and social history updated below. 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 Jennifer and/or Jesus's children would be medical decision makers if needed (2 adult children in [place]). Nonsmoker, drinks daily, sometimes 10+ drinks in 1 day. No known history of ETOH withdrawal. Requests Full Code status. Review of Systems Status of ROS: Reports: 10 or more systems reviewed and unremarkable except as noted in History and below Narrative: Mild discomfort LUQ. No CP. Concern for ESTEVAN from PCP given daytime somnolence, will f/u as an outpatient for this. [facility] Medical History (Updated 06/10/22 @ 14:02 by Angie Valles MD) Alcoholic fatty liver Loja's esophagus Chronic obstructive pulmonary disease (2014) Chronic right-sided low back pain Erectile dysfunction Gastroesophageal reflux disease History of malignant neoplasm of prostate (03/2011) History of pneumonia (05/2020) Hyperlipidemia Hypertension Microcytic anemia Osteoarthritis of both hips Pancytopenia Seasonal allergic rhinitis Surgical History History of radical retropubic prostatectomy (07/28/11) History of vasectomy (2006) Family History Mother Heart disease Father Prostate cancer Social History (Updated 06/09/22 @ 21:24 by Marquise Contreras MD) Narrative: , 2 kids, 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, 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, 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[employer] Highest level of school completed/degree received: some college, no degree Smoking Status: Former smoker Second hand tobacco smoke exposure: No How often do you have a drink containing alcohol: 4 or more times a week Alcohol type: beer Alcohol type details: Cocktail How many standard drinks containing alcohol do you have on a typical day: 5 or 6 How often do you have six or more drinks on one occasion: Daily or almost daily AUDIT-C Alcohol total score: 10 Non-prescribed substance use: denies use Caffeine: No service: No Meds Home Medications and Allergies Home Medications Medication Instructions Recorded Confirmed Type atorvastatin 80 mg tablet 80 mg PO HS 05/22/22 06/10/22 History calcium carbonate 500 mg-vitamin 1 tab PO DAILY 05/22/22 06/10/22 History D3 3.125 mcg (125 unit) tablet coenzyme Q10 200 mg capsule 200 mg PO QDAY 05/22/22 06/10/22 History cyanocobalamin (vitamin B-12) 5,000 mcg PO DAILY 05/22/22 06/10/22 History 1,000 mcg tablet escitalopram oxalate 10 mg tablet 10 mg PO DAILY 05/22/22 06/10/22 History losartan 100 mg tablet 100 mg PO DAILY 05/22/22 06/10/22 History magnesium oxide 400 mg (241.3 mg 400 mg PO DAILY 05/22/22 06/10/22 History magnesium) tablet multivitamin 1 tab PO QDAY 05/22/22 06/10/22 History omeprazole 20 mg capsule,delayed 20 mg PO DAILY 05/22/22 06/10/22 History release polyethylene glycol 3350 17 17 g PO DAILY 05/22/22 06/10/22 History gram/dose oral powder gabapentin 300 mg capsule 300 mg PO QDAY 06/01/22 06/10/22 History Allergies Allergy/AdvReac Type Severity Reaction Status Date / Time No Known Drug Allergies Allergy Verified 06/10/22 13:55 Exam Narrative: Exam Narrative: GEN: Alert HEENT: Normal external ears, EOMIs bilaterally, + conjunctival pallor CV: RRR, No concerning murmurs, rubs, or gallops R: LCTA bilaterally without concerning wheezing, rales, or rhonchi, air movement adequate Ab: no ttp, + hepatomegaly Ext: + edema BLE Skin: No concerning skin lesions or rashes on exposed skin Neuro: Nonfocal Psych: Appropriate Const: Vital Signs, click to edit/add: Vital Signs - 24 hr 06/09/22 16:09 06/09/22 17:21 06/09/22 17:22 Temperature 98.0 F Pulse Rate 86 89 Pulse Rate [Left P ulse Oximeter] Pulse Rate [Right Pulse Oximeter] 98 Respiratory Rate 18 Blood Pressure 168/76 H Blood Pressure [Le ft Arm] Blood Pressure [Ri ght Upper Arm] 172/87 H Pulse Oximetry 98 97 97 Oxygen Delivery Me od Room Air 06/09/22 17:30 06/09/22 17:44 06/09/22 17:45 Temperature Pulse Rate 90 101 H 91 Pulse Rate [Left P ulse Oximeter] Pulse Rate [Right Pulse Oximeter] Respiratory Rate Blood Pressure 151/79 H Blood Pressure [Le ft Arm] Blood Pressure [Ri ght Upper Arm] Pulse Oximetry 99 99 100 Oxygen Delivery Me thod 06/09/22 18:00 06/09/22 18:02 06/09/22 18:03 Temperature Pulse Rate 87 90 89 Pulse Rate [Left P ulse Oximeter] Pulse Rate [Right Pulse Oximeter] Respiratory Rate Blood Pressure 168/75 H Blood Pressure [Le ft Arm] Blood Pressure [Ri ght Upper Arm] Pulse Oximetry 98 98 98 Oxygen Delivery Me thod 06/09/22 18:30 06/09/22 18:31 06/09/22 20:01 Temperature 97.9 F Pulse Rate 88 91 86 Pulse Rate [Left P ulse Oximeter] Pulse Rate [Right Pulse Oximeter] Respiratory Rate 14 Blood Pressure 162/78 H 142/81 H Blood Pressure [Le ft Arm] Blood Pressure [Ri ght Upper Arm] Pulse Oximetry 99 98 97 Oxygen Delivery Me thod 06/09/22 20:20 06/09/22 18:32 06/09/22 19:00 Temperature 98.2 F Pulse Rate 86 92 97 Pulse Rate [Left P ulse Oximeter] Pulse Rate [Right Pulse Oximeter] Respiratory Rate 16 Blood Pressure 169/74 H Blood Pressure [Le ft Arm] Blood Pressure [Ri ght Upper Arm] Pulse Oximetry 98 98 98 Oxygen Delivery Me thod 06/09/22 19:01 06/09/22 19:30 06/09/22 19:32 Temperature Pulse Rate 96 87 87 Pulse Rate [Left P ulse Oximeter] Pulse Rate [Right Pulse Oximeter] Respiratory Rate Blood Pressure 170/78 H 160/80 H Blood Pressure [Le ft Arm] Blood Pressure [Ri ght Upper Arm] Pulse Oximetry 97 98 98 Oxygen Delivery Me thod 06/09/22 20:00 06/09/22 20:01 06/09/22 20:16 Temperature Pulse Rate 91 94 89 Pulse Rate [Left P ulse Oximeter] Pulse Rate [Right Pulse Oximeter] Respiratory Rate Blood Pressure 142/81 H 160/78 H Blood Pressure [Le ft Arm] Blood Pressure [Ri ght Upper Arm] Pulse Oximetry 99 98 99 Oxygen Delivery Me thod 06/09/22 20:25 06/09/22 20:30 06/09/22 20:32 Temperature Pulse Rate 85 87 89 Pulse Rate [Left P ulse Oximeter] Pulse Rate [Right Pulse Oximeter] Respiratory Rate Blood Pressure 169/74 H 162/74 H Blood Pressure [Le ft Arm] Blood Pressure [Ri ght Upper Arm] Pulse Oximetry 97 97 98 Oxygen Delivery Me thod 06/09/22 21:10 06/09/22 21:35 06/09/22 21:41 Temperature 98.5 F 98.2 F 98.5 F Pulse Rate 84 82 83 Pulse Rate [Left P ulse Oximeter] Pulse Rate [Right Pulse Oximeter] Respiratory Rate 12 18 18 Blood Pressure 170/79 H 175/76 H 175/76 H Blood Pressure [Le ft Arm] Blood Pressure [Ri ght Upper Arm] Pulse Oximetry 98 97 97 Oxygen Delivery Me thod 06/09/22 20:33 06/09/22 20:47 06/09/22 21:00 Temperature Pulse Rate 91 88 89 Pulse Rate [Left P ulse Oximeter] Pulse Rate [Right Pulse Oximeter] Respiratory Rate Blood Pressure 158/72 H Blood Pressure [Le ft Arm] Blood Pressure [Ri ght Upper Arm] Pulse Oximetry 98 98 97 Oxygen Delivery Me thod 06/09/22 21:02 06/09/22 21:14 06/09/22 21:17 Temperature Pulse Rate 87 87 83 Pulse Rate [Left P ulse Oximeter] Pulse Rate [Right Pulse Oximeter] Respiratory Rate Blood Pressure 176/80 H 170/79 H 159/68 H Blood Pressure [Le ft Arm] Blood Pressure [Ri ght Upper Arm] Pulse Oximetry 97 97 97 Oxygen Delivery Me thod 06/09/22 21:30 06/09/22 21:31 06/09/22 21:56 Temperature 98.3 F Pulse Rate 92 91 83 Pulse Rate [Left P ulse Oximeter] Pulse Rate [Right Pulse Oximeter] Respiratory Rate 20 Blood Pressure 175/76 H 140/71 H Blood Pressure [Le ft Arm] Blood Pressure [Ri ght Upper Arm] Pulse Oximetry 98 97 98 Oxygen Delivery Me thod 06/09/22 22:10 06/09/22 22:42 06/09/22 23:04 Temperature 97.9 F 98.5 F 98.2 F Pulse Rate 85 81 85 Pulse Rate [Left P ulse Oximeter] Pulse Rate [Right Pulse Oximeter] Respiratory Rate 18 16 18 Blood Pressure 152/64 H 163/78 H 169/82 H Blood Pressure [Le ft Arm] Blood Pressure [Ri ght Upper Arm] Pulse Oximetry 98 97 98 Oxygen Delivery Me thod 06/09/22 23:33 06/09/22 21:32 06/09/22 21:47 Temperature 98.3 F Pulse Rate 81 88 84 Pulse Rate [Left P ulse Oximeter] Pulse Rate [Right Pulse Oximeter] Respiratory Rate 16 Blood Pressure 168/79 H 159/65 H Blood Pressure [Le ft Arm] Blood Pressure [Ri ght Upper Arm] Pulse Oximetry 97 98 97 Oxygen Delivery Me thod 06/09/22 21:56 06/09/22 22:00 06/09/22 22:02 Temperature Pulse Rate 92 85 87 Pulse Rate [Left P ulse Oximeter] Pulse Rate [Right Pulse Oximeter] Respiratory Rate Blood Pressure 140/71 H 138/69 Blood Pressure [Le ft Arm] Blood Pressure [Ri ght Upper Arm] Pulse Oximetry 97 97 98 Oxygen Delivery Me thod 06/09/22 22:11 06/09/22 22:16 06/09/22 22:30 Temperature Pulse Rate 83 83 80 Pulse Rate [Left P ulse Oximeter] Pulse Rate [Right Pulse Oximeter] Respiratory Rate Blood Pressure 152/64 H 165/76 H Blood Pressure [Le ft Arm] Blood Pressure [Ri ght Upper Arm] Pulse Oximetry 97 97 97 Oxygen Delivery Me thod 06/09/22 22:32 06/09/22 22:46 06/09/22 23:02 Temperature Pulse Rate 83 82 93 Pulse Rate [Left P ulse Oximeter] Pulse Rate [Right Pulse Oximeter] Respiratory Rate Blood Pressure 154/72 H 163/78 H Blood Pressure [Le ft Arm] Blood Pressure [Ri ght Upper Arm] Pulse Oximetry 98 97 97 Oxygen Delivery Me thod 06/09/22 23:04 06/09/22 23:30 06/09/22 23:31 Temperature Pulse Rate 81 79 80 Pulse Rate [Left P ulse Oximeter] Pulse Rate [Right Pulse Oximeter] Respiratory Rate Blood Pressure 169/82 H 168/79 H Blood Pressure [Le ft Arm] Blood Pressure [Ri ght Upper Arm] Pulse Oximetry 98 97 97 Oxygen Delivery Me thod 06/10/22 00:00 06/10/22 00:02 06/10/22 00:51 Temperature 97.8 F Pulse Rate 77 84 Pulse Rate [Left P ulse Oximeter] 83 Pulse Rate [Right Pulse Oximeter] Respiratory Rate 20 Blood Pressure 169/88 H Blood Pressure [Le ft Arm] 174/86 H Blood Pressure [Ri ght Upper Arm] Pulse Oximetry 94 95 97 Oxygen Delivery Me thod Room Air 06/10/22 02:08 06/10/22 02:31 06/10/22 02:40 Temperature 97.8 F 97.8 F 97.9 F Pulse Rate 80 76 79 Pulse Rate [Left P ulse Oximeter] Pulse Rate [Right Pulse Oximeter] Respiratory Rate 18 18 18 Blood Pressure 159/77 H 156/80 H 166/78 H Blood Pressure [Le ft Arm] Blood Pressure [Ri ght Upper Arm] Pulse Oximetry 96 96 96 Oxygen Delivery Me thod 06/10/22 02:58 06/10/22 02:35 06/10/22 03:16 Temperature 97.8 F 97.8 F 97.8 F Pulse Rate 75 78 Pulse Rate [Left P ulse Oximeter] 76 Pulse Rate [Right Pulse Oximeter] Respiratory Rate 18 18 18 Blood Pressure 167/81 H 159/77 H Blood Pressure [Le ft Arm] 167/81 H Blood Pressure [Ri ght Upper Arm] Pulse Oximetry 96 96 95 Oxygen Delivery Me thod Room Air Hospitalist - H&P: Result Labs Labs: Short CBC 06/09/22 Range/Units 17:30 WBC 6.96 (4.50-11.00) K/uL Hgb 4.9 L* (13.5-17.5) gm/dL Hct 18.4 L (37.0-53.0) % Plt Count 41 L* (140-440) K/uL BMP 06/09/22 17:30 Sodium 141 Potassium 3.4 L Chloride 107 Carbon Dioxide 25 BUN 14 Creatinine 0.9 Glucose 113 Calcium 8.6 Cardiac Enzymes 06/09/22 Range/Units 17:30 Troponin I 0.02 (0.01-0.04) ng/mL Liver Function 06/09/22 Range/Units 17:30 Total Bilirubin 1.1 (0.1-1.5) mg/dL Direct Bilirubin 0.1 (0.0-0.5) mg/dL AST 20 (12-35) U/L ALT 18 (4-50) U/L Alkaline Phosphatase 57 (40-150) U/L Albumin 4.4 (3.3-5.0) g/dL Assessment and Plan Assessment and plan (1) Acute GI bleeding: Problem comment: - EGD today with Dr. Augustin of General Surgery Status: Acute (2) ELLSWORTH (dyspnea on exertion): Problem comment: - likely secondary to profound anemia no acute findings noted on limited stress test 06/09/22 - given symptoms and DVT, will obtain CT PE. Plan pending results Status: Acute (3) Calf DVT (deep venous thrombosis): Problem comment: - R posterior tibial - in the emergency room, physician discussed case with IR, who recommended serial ultrasounds since anticoagulation contraindicated at this time - if repeat ultrasound tomorrow exhibits extension of DVT, will need to discuss case with IR again Status: Acute (4) Thrombocytopenia: Problem comment: - likely related to chronic liver disease Status: Acute (5) Alcoholic fatty liver: Status: Acute (6) Loja's esophagus: Problem comment: - history of this, also noted on 06/10/22 EGD Status: Acute (7) Microcytic anemia: Problem comment: - 2/2 acute GI bleed Status: Acute (8) Alcohol abuse, daily use: Status: Acute Plan - admit to inpatient - follow hemoglobin and transfuse with goal Hgb > 8 - defer anticoagulation for DVT at this time given acute GI bleed, anemia, thrombocytopenia - if + for PE, will seek expert consultation regarding risks and benefits of anticoagulation - recommend complete alcohol cessation - patient requests full code status
[2022-06-10 08:18] LABS: Basophils Absolute Auto 0.09 K/uL (0.00-0.30); Hematocrit 24.2 % (37.0-53.0); Immature Granulocytes Abs Auto 0.74 K/uL (0.00-0.30); Immature Granulocytes Pct Auto 8.2 %; Lymphocytes Percent Auto 8.6 % (20-44); Mean Corpuscular HGB Conc 29 gm/dL (32-36); Mean Corpuscular Hemoglobin 21 pg (26-34); Mean Corpuscular Volume 74 fL (80-100); Monocytes Percent Auto 29.4 % (0.0-11.0); Neutrophils Absolute Auto 4.78 K/uL (1.7-7.0); Neutrophils Percent Auto 52.8 % (42.0-72.0); Red Blood Count 3.28 m/uL (4.30-5.90); White Blood Count* 9.05 K/uL (4.50-11.00)
[2022-06-10 08:33] LABS: Albumin* 4.2 g/dL (3.3-5.0); Chloride* 110 mmol/L (96-114)
[2022-06-10 08:34] LABS: Hemoglobin* 6.9 gm/dL (13.5-17.5); Platelet Count* 39 K/uL (140-440); Potassium* 3.3 mmol/L (3.6-5.1); Slide Review Reflex Yes; Sodium* 142 mmol/L (135-149)
[2022-06-10 08:36] LABS: Alkaline Phosphatase* 52 U/L (40-150); Aspartate Amino Transferase* 21 U/L (12-35); Bilirubin Total* 1.4 mg/dL (0.1-1.5); Blood Urea Nitrogen* 11 mg/dL (7-30); Carbon Dioxide* 22 mmol/L (20-32); Creatinine* 0.8 mg/dL (0.5-1.5); Est. Creatinine Clearance* 72.66; Estimated Glomerular Filt Rate 98 ml/min; INR 1.19 (0.91-1.10); Prothrombin Time 15.8 Seconds; Total Protein* 6.6 g/dL (6.0-8.3)
[2022-06-10 08:37] LABS: Alanine Aminotransferase* 17 U/L (4-50); Calcium* 8.2 mg/dL (8.4-10.6); Glucose* 112 mg/dL (60-115)
[2022-06-10] MEDS: PANTOPRAZOLE SODIUM 40 MG INJ IVP (09:29)
[2022-06-10] MEDS: THIAMINE 250 MG in 0.9 % SODIUM CHLORIDE 100 ml 100 ML 102.5 MG IVPB (10:06)
--- NOTE | 2022-06-10 10:11 | CRLHL7_ITS ---
For Patients: As a result of the Century Cures Act, medical imaging exams and procedure reports are released immediately into your electronic medical record. You may view this report before your referring provider. If you have questions, please contact your health care provider. INDICATION: Dyspnea. TECHNIQUE: CT chest PE was acquired with 95 mL Isovue 370 IV contrast. Coronal and sagittal reformats were generated. COMPARISON: None. FINDINGS: Pulmonary arteries: The quality of enhancement of the pulmonary arteries is adequate. No filling defects to suggest pulmonary emboli. No findings of pulmonary artery hypertension. Thyroid: Unremarkable. Thoracic lymph nodes: No enlarged supraclavicular, mediastinal, hilar, or axillary lymph nodes. Mediastinum and esophagus: Unremarkable. Heart and vasculature: Unremarkable. Lungs: Bibasilar patchy ground-glass opacities are likely relaxation atelectasis associated with the pleural effusions. No focal consolidations. Pleura: Small bilateral pleural effusions, right larger than left. Chest wall: Unremarkable. Upper abdomen: No acute or significant findings. Calcifications in the spleen are likely granulomas. Bones: Unremarkable for age. IMPRESSION: 1. No pulmonary embolism. 2. Except for mild atelectasis, clear lungs. 3. Small bilateral pleural effusions, right larger than left. Please note that all CT scans at this facility use dose modulation, iterative reconstruction, and/or weight-based dosing when appropriate to reduce radiation dose to as low as reasonably achievable. Dictated by Elmer Kidd MD @ 06/10/2022 2:43:30 PM (Electronically Signed)
[2022-06-10] MEDS: POTASSIUM CHLORIDE 10 MEQ/100 ML PIGGYBACK 100 MEQ IVPB ×2 (11:22→13:18)
[2022-06-10 11:47] LABS: Slide Review Acceptable Review (Acceptable)
--- NOTE | 2022-06-10 12:58 | W.ANESCHARGE ---
Anesthesia Charges Start Date/Time Anesthesia Start Date: 06/10/22 Anesthesia Start Time: 12:30 Stop Date/Time Anesthesia Stop Date: 06/10/22 Anesthesia Stop Time: 12:45 Summary Emergency: Yes
[2022-06-10] MEDS: FUROSEMIDE 10 MG/ML inj 20 MG IV (13:16)
--- NOTE | 2022-06-10 14:21 | W.ANESCHARGE ---
Anesthesia Charges Start Date/Time Anesthesia Start Date: 06/10/22 Anesthesia Start Time: 12:30 Stop Date/Time Anesthesia Stop Date: 06/10/22 Anesthesia Stop Time: 12:45 Summary Emergency: Yes
--- NOTE | 2022-06-10 15:46 | PC.NURSE ---
Pt's hgb 6.9. Plts remain low. Eval by Dr. Valles and by Dr. Augustin surgeon who will perform EGD on pt later today. Anesthesia visit. Pt has new orders for IV Sandostatin bolus, IV infusion of thiamine and IV infusion of sandostatin. NS maintenance fluids @ 50cc/hr. Pt NPO except ice chips. IV protonix given per protocol. New order for additional unit of prbc to be given prior to GI procedure, blood not ready until 10:45am. Double checked prbc and initiated transfusion with Ketan Spencer RN. When thiamine infusion completed, pt received 1st bump of 10meQ of IV potassium. One hour blood vs taken @ 11:45 in EGD during procedure. End of unit blood VS also completed in EGD @ 1235pm. Pt returned to floor at 1305 and was recovered with 3 sets of VS by primary care RN. Pt also received 20 units of lasix IV as part of the blood protocol. Second bag of potassium infusing with Sandostatin infusion. Tele indicates sinus tachycardia. Pt's IVF on hold when he was taken for CT scan with contrast. IV's resumed and tele replaced after CT scan completed. Pt advance to [facility] diet for lunch. Plan [place] for dinner tray. Report to Zahra GRAHAM for evening shift.
[2022-06-10] MEDS: PANTOPRAZOLE SODIUM 40 MG INJ 80 MG IVP (15:48)
[2022-06-10] MEDS: MULTIVITAMIN/MINERALS 1 TABLET 1 TAB PO (15:48)
[2022-06-10] MEDS: ATORVASTATIN CALCIUM 40 MG TABLET 80 MG PO (20:46)
--- NOTE | 2022-06-10 21:19 | PC.NURSE ---
Shift Summary: Patient pleasant and cooperative. Up with SBA and gait belt. Denies pain, nausea, or SOB, vitals stable. Tolerating regular diet. Using call light appropriately.
[2022-06-10 22:56] LABS: Hemoglobin* 7.8 gm/dL (13.5-17.5)
[2022-06-11] VITALS (11 sets, daily range): BP systolic 163–179; BP diastolic 1–89; PULSE 68–88; RESP 18–20; TEMP 36.4–37; O2SAT 95–98
[2022-06-11] MEDS: 0.9 % SODIUM CHLORIDE 1000 ml 1,000 ML 50 ML IV (03:04)
[2022-06-11] MEDS: cefTRIAXone 1 GM in 0.9 % SODIUM CHLORIDE Mini-bag 100 ML IVPB (03:05)
[2022-06-11] MEDS: PANTOPRAZOLE SODIUM 40 MG INJ 80 MG IVP ×2 (03:11→16:29)
--- NOTE | 2022-06-11 06:14 | PC.NURSE ---
Shift note: Pt's condition is stable. V/s stable. Denied dizziness and pain. Ambulate wit 1 assist.
[2022-06-11 07:25] LABS: Basophils Absolute Auto 0.08 K/uL (0.00-0.30); Basophils Percent Auto 0.8 % (0.0-3.0); Eosinophils Absolute Auto 0.01 K/uL (0.00-0.50); Eosinophils Percent Auto 0.1 % (0.0-7.0); Hematocrit 26.9 % (37.0-53.0); Immature Granulocytes Abs Auto 0.77 K/uL (0.00-0.30); Immature Granulocytes Pct Auto 7.5 %; Lymphocytes Percent Auto 7.3 % (20-44); Mean Corpuscular HGB Conc 29 gm/dL (32-36); Mean Corpuscular Hemoglobin 22 pg (26-34); Mean Corpuscular Volume 75 fL (80-100); Monocytes Percent Auto 29.4 % (0.0-11.0); Neutrophils Absolute Auto 5.61 K/uL (1.7-7.0); Neutrophils Percent Auto 54.9 % (42.0-72.0); RDW Coefficient of Variation % 22.2 % (11.5-15.5); Red Blood Count 3.57 m/uL (4.30-5.90); White Blood Count* 10.23 K/uL (4.50-11.00)
[2022-06-11 07:39] LABS: Albumin* 4.3 g/dL (3.3-5.0); Chloride* 105 mmol/L (96-114); Potassium* 3.8 mmol/L (3.6-5.1); Sodium* 140 mmol/L (135-149)
[2022-06-11 07:40] LABS: INR 1.18 (0.91-1.10); Prothrombin Time 15.7 Seconds
[2022-06-11 07:42] LABS: Alanine Aminotransferase* 25 U/L (4-50); Alkaline Phosphatase* 53 U/L (40-150); Aspartate Amino Transferase* 34 U/L (12-35); Bilirubin Total* 1.3 mg/dL (0.1-1.5); Blood Urea Nitrogen* 10 mg/dL (7-30); Carbon Dioxide* 28 mmol/L (20-32); Est. Creatinine Clearance* 72.66; Estimated Glomerular Filt Rate 83 ml/min; Glucose* 125 mg/dL (60-115); Total Protein* 6.7 g/dL (6.0-8.3)
[2022-06-11 07:43] LABS: Calcium* 7.8 mg/dL (8.4-10.6); Magnesium* 1.2 mg/dL (1.5-2.6)
[2022-06-11 08:02] LABS: Platelet Count* 41 K/uL (140-440)
[2022-06-11 08:03] LABS: Hemoglobin* 7.7 gm/dL (13.5-17.5); Slide Review Reflex Yes
[2022-06-11 08:08] LABS: Slide Review Acceptable Review (Acceptable)
[2022-06-11] MEDS: MULTIVITAMIN/MINERALS 1 TABLET 1 TAB PO (08:29)
[2022-06-11] MEDS: THIAMINE 100 MG TABLET PO (13:35)
[2022-06-11] MEDS: MAGNESIUM OXIDE 400 MG TABLET PO (13:35)
[2022-06-11] MEDS: GABAPENTIN 300 MG CAPSULE PO (13:35)
[2022-06-11] MEDS: MAGNESIUM SULFATE 2 GM/50 ML PIGGYBACK IVPB (13:36)
[2022-06-11] MEDS: CYANOCOBALAMIN (VITAMIN B-12) 500 MCG TABLET 1000 MCG PO (13:38)
--- NOTE | 2022-06-11 13:42 | CRLHL7_ITS ---
For Patients: As a result of the Century Cures Act, medical imaging exams and procedure reports are released immediately into your electronic medical record. You may view this report before your referring provider. If you have questions, please contact your health care provider. INDICATION: FOLLOW UP DVT COMPARISON: 06/09/2022 TECHNIQUE: A compression venous ultrasound exam was performed of the right lower extremity using daniel-scale imaging, color Doppler and spectral Doppler analysis. FINDINGS: Sonographic imaging of the right lower extremity demonstrates normal compressibility and color Doppler venous blood flow within the common femoral vein, deep femoral vein, and the proximal greater saphenous vein. Within the thigh, the femoral vein is patent and compressible. At a lower level, the popliteal and posterior tibial veins also show normal compressibility and color Doppler venous blood flow. Limited imaging of the contralateral groin demonstrates a normal spectral waveform and color Doppler venous blood flow within the left common femoral vein. IMPRESSION: Normal venous ultrasound exam. No evidence of deep vein thrombosis within the right lower extremity. Interval clearing of the previously noted clot within 1 of the posterior tibial veins. Dictated by Marquise Nation MD @ 06/11/2022 3:30:15 PM (Electronically Signed)
[2022-06-11] MEDS: FUROSEMIDE 10 MG/ML inj 20 MG IV (16:29)
[2022-06-11 16:33] LABS: Hemoglobin* 8.7 gm/dL (13.5-17.5)
--- NOTE | 2022-06-11 17:07 | P.DS_ITS ---
DS: Providers Provider Date Seen: 06/11/22 Date of admission: 06/10/22 11:00 Primary care physician: Marquise Contreras MD Admitting Clinician: Shiloh Alatorre MD Attending Physician on discharge: Angie Valles MD Date of Discharge: 06/11/22 DS: Diagnosis Discharge Diagnosis (1) Acute GI bleeding: Status: Acute Problem details: - EGD performed 06/10/[address] Augustin of General Surgery; noted if gastric polyps and a segment of Loja's esophagus, no acute bleeding noted - melena resolved during stay and hemoglobin remained stable, patient is s/p 4 units of PRBCs - will require close follow-up with Gastroenterology as an outpatient (2) Alcohol abuse, daily use: Status: Acute Problem details: - likely contributing to GI bleed and thrombocytopenia (3) Microcytic anemia: Status: Acute Problem details: - 2/2 acute GI bleed (4) Thrombocytopenia: Status: Acute Problem details: - likely related to chronic liver disease/ETOH (5) Calf DVT (deep venous thrombosis): Status: Acute Problem details: - R posterior tibial noted on 06/10 admission ultrasound - in the emergency room, physician discussed case with IR, who recommended serial ultrasounds since anticoagulation contraindicated at this time - Repeat ultrasound 06/11 exhibited resolution of DVT (6) Alcoholic fatty liver: Status: Acute (7) Loja's esophagus: Status: Acute Problem details: - history of this, also noted on 06/10/22 EGD DS: Summary Hospital Course Hospital Course: 67-year-old male, admitted to the hospital after experiencing acute on chronic dyspnea during outpatient stress test. In the ED, noted to have a hemoglobin of 4.9 with platelets of 41. Patient endorsed recent history of melena. Normal colonoscopy October 2021. EGD during stay exhibited gastric polyps and Loja's esophagus, no acute bleeding noted; biopsies deferred given thrombocytopenia. Patient received a total of 4U PRBCs and his dyspnea resolved, requesting discharge on hospital day 1. He was also noted to have significant lower extremity edema, small DVT noted on admission ultrasound. Patient was not anticoagulated given anemia and thrombocytopenia. Repeat ultrasound 06/11 exhibited resolution of DVT. Recommended 1 further day in the hospital for monitoring; patient declined and requested discharge home on hospital day 1. We discussed at length the risk of continued alcohol use. Discussions were had with patient and his partner. Complete alcohol cessation recommended at this time. He will also hold all aspirin, ibuprofen, Naprosyn. He will see his PCP early next week, will also require follow-up with GI (patient requests [facility], as that is who he sees for his prostate cancer). Status at Discharge Functional status at discharge: independent ambulation Overall status at discharge: patient is progressing back to baseline Time Spent with Patient Time attestation: Total time spent providing and/or coordinating discharge services: Time spent: Greater than 30 minutes Specific discharge activities: Medication reconciliation, counseling, discharge paperwork Exam Narrative: Exam Narrative: GEN: Alert HEENT: Normal external ears, EOMIs bilaterally, no scleral icterus, mild conjunctival pallor CV: RRR, No concerning murmurs, rubs, or gallops R: LCTA bilaterally without concerning wheezing, rales, or rhonchi Ab: Soft and nontender, moderate hepatomegaly noted Ext: wwp, 2+ edema bilateral lower extremities Skin: No concerning skin lesions or rashes on exposed skin Neuro: Nonfocal Psych: Appropriate, moderately agitated regarding hospital stay Const: Vital Signs, click to edit/add: Vital Signs - 24 hr 06/10/22 19:00 06/10/22 23:00 06/11/22 02:35 Temperature 98.7 F 97.6 F Pulse Rate Pulse Rate [Left P ulse Oximeter] 77 80 68 Respiratory Rate 18 18 Blood Pressure Blood Pressure [Le ft Arm] 153/80 H 168/1 H Pulse Oximetry 97 97 Oxygen Delivery Me thod Room Air Room Air 06/11/22 08:20 06/11/22 07:00 06/11/22 08:22 Temperature 98.2 F 98.2 F Pulse Rate Pulse Rate [Left P ulse Oximeter] 80 80 Respiratory Rate 20 20 20 Blood Pressure Blood Pressure [Le ft Arm] 164/77 H 164/77 H Pulse Oximetry 95 95 Oxygen Delivery Me thod Room Air Room Air 06/11/22 10:32 06/11/22 12:37 06/11/22 11:00 Temperature 98.6 F 98.6 F Pulse Rate 83 82 Pulse Rate [Left P ulse Oximeter] 80 Respiratory Rate 20 20 Blood Pressure 163/89 H Blood Pressure [Le ft Arm] 164/77 H Pulse Oximetry 98 98 Oxygen Delivery Me thod Room Air 06/11/22 12:54 06/11/22 13:39 06/11/22 14:39 Temperature 98.5 F 98.6 F 98.6 F Pulse Rate 86 80 88 Pulse Rate [Left P ulse Oximeter] Respiratory Rate 20 18 20 Blood Pressure 173/79 H 169/82 H 179/86 H Blood Pressure [Le ft Arm] Pulse Oximetry 97 96 95 Oxygen Delivery Me thod 06/11/22 15:00 06/11/22 15:00 Temperature 98.6 F Pulse Rate Pulse Rate [Left P ulse Oximeter] 80 80 Respiratory Rate 20 20 Blood Pressure Blood Pressure [Le ft Arm] 164/77 H Pulse Oximetry 95 Oxygen Delivery Me thod Room Air DS: Data Data Completed and Pending Labs on day of discharge: Labs from last 24 hours 06/11/22 06/11/22 06/11/22 16:26 06:58 06:58 WBC RBC Hgb Pending Hct MCV MCH MCHC RDW Coeff of [place] Plt Count Neut % (Auto) Lymph % (Auto) Hand % (Auto) Eos % (Auto) Baso % (Auto) Neut # (Auto) Lymph # (Auto) Hand # (Auto) Eos # (Auto) Baso # (Auto) Abs Immat Gran (auto) Imm/Tot Granulo (auto) Diff Slide Review INR 1.18 H Sodium 140 Potassium 3.8 Chloride 105 Carbon Dioxide 28 BUN 10 Creatinine 1.0 Estimated Creat Clear 72.66 Estimated GFR 83 Glucose 125 H Calcium 7.8 L Magnesium 1.2 L Total Bilirubin 1.3 AST 34 ALT 25 Alkaline Phosphatase 53 Total Protein 6.7 Albumin 4.3 Blood Type Antibody Screen Crossmatch (AHG) 06/11/22 06/10/22 06/09/22 06:58 22:00 17:30 WBC 10.23 RBC 3.57 L Hgb 7.7 L* 7.8 L* Hct 26.9 L MCV 75 L MCH 22 L MCHC 29 L RDW Coeff of [place]am 22.2 H Plt Count 41 L* Neut % (Auto) 54.9 Lymph % (Auto) 7.3 L Hand % (Auto) 29.4 H Eos % (Auto) 0.1 Baso % (Auto) 0.8 Neut # (Auto) 5.61 Lymph # (Auto) 0.70 L Hand # (Auto) 3.00 H Eos # (Auto) 0.01 Baso # (Auto) 0.08 Abs Immat Gran (auto) 0.77 H Imm/Tot Granulo (auto) 7.5 Diff Slide Review Acceptable Review INR Sodium Potassium Chloride Carbon Dioxide BUN Creatinine Estimated Creat Clear Estimated GFR Glucose Calcium Magnesium Total Bilirubin AST ALT Alkaline Phosphatase Total Protein Albumin Blood Type O Negative Antibody Screen NEGATIVE Crossmatch (AHG) See Detail Discharge Plan Discharge Disposition: Home, Self-Care Date of Admission: 06/10/22 11:00 Attending Provider on Discharge: Angie Valles Consulting Providers: Ez Augustin Primary Care Provider: Marquise Contreras Condition: Improved Anticipated Discharge Date/Time: 06/11/22 16:55 Discharge Medications: Continued calcium carbonate-vitamin D3 500 mg-3.125 mcg (125 unit) tablet 1 tab PO DAILY polyethylene glycol 3350 17 gram/dose powder 17 g PO DAILY magnesium oxide 400 mg (241.3 mg magnesium) tablet 400 mg PO DAILY cyanocobalamin (vitamin B-12) 1,000 mcg tablet 5,000 mcg PO DAILY coenzyme Q10 200 mg capsule 200 mg PO QDAY multivitamin Tablet 1 tab PO QDAY escitalopram oxalate 10 mg tablet 10 mg PO DAILY losartan 100 mg tablet 100 mg PO DAILY atorvastatin 80 mg tablet 80 mg PO HS gabapentin 300 mg capsule 300 mg PO QDAY Changed omeprazole 20 mg capsule,delayed release(DR/EC) 20 mg PO BID Qty: 60 0RF Rx Instructions: please note dose increase Discharge Orders: Discharge Order (Routine); Ordered 06/11/22 Ordered By: Angie Valles Patient Education: Gastrointestinal Bleeding (DC) Additional Instructions: No alcohol, no ASA, no Ibuprofen, Aleve/Naproxen until followup with GI. Double your Omeprazole (take morning and night) until followup with GI. See Ben next week, then [facility] to discuss further workup for your anemia. You MUST return to hospital for any further blood/dark stool, vomiting, abdominal pain, or other concerns. Activity Level: Activity as Tolerated and No strenuous activity Discharge Diet: Regular Diet Detail: low acid - make sure you're taking BID Omeprazole Follow Up Appointments: Marquise Contreras MD [Primary Care Provider] - (see Dr. Contreras early next week for hospital f/u. also needs appt with [facility] in the next 2-3 weeks, phone #[phone]) Forms: [employer] Info Instructions
== END 2022-06-11 18:01 | disposition home or self-care (01) | DRG 378 ==
LOC: ED 23:22 → MEDSURG 06-10 00:32
PROVIDERS: Family Medicine; Hospitalist; Admitting Provider Family Medicine; Emergency Provider Emergency Medicine; PCP Family Medicine; Visit Provider Family Medicine
DX: K92.2 Gastrointestinal hemorrhage, unspecified (principal); D62 Acute posthemorrhagic anemia; I82.441 Acute embolism and thrombosis of right tibial vein; K92.1 Melena; D69.6 Thrombocytopenia, unspecified; R53.1 Weakness; R06.02 Shortness of breath; R60.0 Localized edema; K31.7 Polyp of stomach and duodenum; K22.70 Barrett's esophagus without dysplasia; F10.20 Alcohol dependence, uncomplicated; J44.9 Chronic obstructive pulmonary disease, unspecified; K21.9 Gastro-esophageal reflux disease without esophagitis; I10 Essential (primary) hypertension; K70.0 Alcoholic fatty liver; R68.84 Jaw pain; G89.29 Other chronic pain; M54.50 Low back pain, unspecified; M16.0 Bilateral primary osteoarthritis of hip; Z85.46 Personal history of malignant neoplasm of prostate; N52.9 Male erectile dysfunction, unspecified; E78.5 Hyperlipidemia, unspecified
CPT/HCPCS: 00731; 00813; 36415; 36430; 71046; 71260; 80048; 80053; 80076; 83735; 83880; 84443; 84484; 85018; 85025; 85379; 85610; 86140; 86850; 86900; 86901; 86922; 87502; 87634; 87635; 93005; 93016; 93325; 93351; 93970; 93971; 99140; 99285; A9153; A9270; C9113; G0378; J0610; J0696; J1940; J2354; J3411; J3475; J3480; J3490; J7030; J7050; P9016; P9073; Q9967

== ENCOUNTER 2022-06-15 15:52 | Emergency (ER) | payer MEDICARE, BC, SELFPAY ==
[2022-06-15 16:42] VITALS: BP 172/71; PULSE 61; RESP 18; TEMP 37.6; O2SAT 99; BMI 31.7
--- NOTE | 2022-06-15 16:47 | CRLHL7_ITS ---
For Patients: As a result of the Century Cures Act, medical imaging exams and procedure reports are released immediately into your electronic medical record. You may view this report before your referring provider. If you have questions, please contact your health care provider. INDICATION: Constipation, back pain. TECHNIQUE: Abdomen 4 view. COMPARISON: None. FINDINGS: Bowel: The bowel gas pattern is normal. The amount of colonic stool is normal. Other: No sign of free air. No sign of soft tissue mass. No suspicious calcifications. Osseous structures are unremarkable for age. IMPRESSION: Unremarkable abdomen. Dictated by Elmer Kidd MD @ 06/15/2022 6:05:08 PM (Electronically Signed)
[2022-06-15 19:49] LABS: Appearance Urine Clear (Clear); Bilirubin Urine Negative (Negative); Blood Urine 1+ (Negative); Color Urine Yellow (Yellow); Glucose Urine Negative (Negative); Ketones Urine Negative (Negative); Leukocyte Esterase Urine Negative (Negative); Nitrite Urine Negative (Negative); Protein Urine Negative (Negative); Specific Gravity Urine <= 1.005 (1.000-1.030); Urobilinogen Urine 0.2 (0.2-1.0)
[2022-06-15 20:10] LABS: WBC Urine 0-2 (0-5)
--- NOTE | 2022-06-15 20:29 | CRLHL7_ITS ---
For Patients: As a result of the Century Cures Act, medical imaging exams and procedure reports are released immediately into your electronic medical record. You may view this report before your referring provider. If you have questions, please contact your health care provider. INDICATION: Back pain. TECHNIQUE: CT lumbar spine without contrast. COMPARISON: None. FINDINGS: Vertebrae: Alignment is normal. There are no fractures or suspicious bony lesions. Discs and facet joints: There are diffuse degenerative changes in the disc spaces and facet joints. Extraspinal findings: Paraspinous soft tissues are unremarkable. Scattered atherosclerotic calcifications. IMPRESSION: 1. No acute fracture or subluxation of the lumbar spine. 2. Multilevel degenerative spondylosis. 3. Moderate spinal canal narrowing at L3-L4 and L4-L5. Please note that all CT scans at this facility use dose modulation, iterative reconstruction, and/or weight-based dosing when appropriate to reduce radiation dose to as low as reasonably achievable. Dictated by Zachary Em MD @ 06/15/2022 9:55:46 PM (Electronically Signed)
[2022-06-15 21:00] VITALS: BP 151/71; PULSE 68; RESP 16; O2SAT 99
[2022-06-15] MEDS: HYDROCODONE-ACETAMIN 5-325 MG 1 TAB 2 TAB PO (21:42)
--- NOTE | 2022-06-15 21:44 | ED_ITS ---
HPI - General Adult General Chief complaint: Constipation Stated complaint: Can't walk, bowel obstruction Time Seen by Provider: 06/15/22 19:01 History of Present Illness HPI narrative: 67-year-old man here with complaint of severe low back pain. Especially maybe more the right side. Has also had a lack of bowel movements nothing satisfying over the last few days. Is concerned that this might be contributing to back pain. The time I am seeing him abdominal x-ray has been done and by my read I do not see any unusual stool or unusual bowel pattern. Was recently admitted to this facility severely anemic and thought to have upper GI source. Concern of Loja's on upper endoscopy. No abdominal imaging was done at that time. Did have DVT as well. Has not been taking anything for pain as he says he was told not to. 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 Has been truly an active over the last 3 days actually even prior to that. Was anticipating stress echocardiogram for lower extremity edema he says but knew he would be able to tolerate that and further testing revealed this anemia. He was ambulating on a walk with significant other 3 days ago and had a sudden pain in his right low back. He has been in otherwise very sedentary activity basically just lying in the bed and at times moving about his room for many days. No dysuria frequency urgency. No hematuria. Records indicate a history of low right-sided low back pain. Pain that he is complaining of at this time does not radiate. He has felt like his legs were going to give out but this was weakness related to pain. There has been no loss of sensation. Related Data Home Medications Medication Instructions Recorded Confirmed atorvastatin 80 mg tablet 80 mg PO HS 05/22/22 06/10/22 calcium carbonate 500 mg-vitamin 1 tab PO DAILY 05/22/22 06/10/22 D3 3.125 mcg (125 unit) tablet coenzyme Q10 200 mg capsule 200 mg PO QDAY 05/22/22 06/10/22 cyanocobalamin (vitamin B-12) 5,000 mcg PO DAILY 05/22/22 06/10/22 1,000 mcg tablet escitalopram oxalate 10 mg tablet 10 mg PO DAILY 05/22/22 06/10/22 losartan 100 mg tablet 100 mg PO DAILY 05/22/22 06/10/22 magnesium oxide 400 mg (241.3 mg 400 mg PO DAILY 05/22/22 06/10/22 magnesium) tablet multivitamin 1 tab PO QDAY 05/22/22 06/10/22 polyethylene glycol 3350 17 17 g PO DAILY 05/22/22 06/10/22 gram/dose oral powder gabapentin 300 mg capsule 300 mg PO QDAY 06/01/22 06/10/22 Previous Rx's Medication Instructions Recorded omeprazole 20 mg capsule,delayed 20 mg PO BID #60 caps 06/11/22 release Allergies Allergy/AdvReac Type Severity Reaction Status Date / Time No Known Drug Allergies Allergy Verified 06/15/22 16:47 Review of Systems Status of ROS: Reports: 10 or more systems reviewed and unremarkable except as noted in History and below [facility] Medical History Alcoholic fatty liver Loja's esophagus Chronic obstructive pulmonary disease (2013) Chronic right-sided low back pain Erectile dysfunction Gastroesophageal reflux disease History of malignant neoplasm of prostate (03/2011) History of pneumonia (05/2020) Hyperlipidemia Hypertension Microcytic anemia Osteoarthritis of both hips Pancytopenia Seasonal allergic rhinitis Surgical History History of radical retropubic prostatectomy (07/28/11) History of vasectomy (2006) Family History Mother Heart disease Father Prostate cancer Brother Obstructive sleep apnea Social History Narrative: , 2 kids, 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 Highest level of school completed/degree received: some college, no degree Smoking Status: Former smoker Do you use any of these nicotine containing products: None Second hand tobacco smoke exposure: No Non-prescribed substance use: denies use Caffeine: No service: No Exam Narrative: Exam Narrative: Very pleasant with high energy. Clearly uncomfortable with transitions. Is breathing easily. Lungs are clear. Oropharynx unremarkable. Skin is warm and dry. There is no swelling or erythema in the area in question of pain. Examination of the low back reveals pain is concentrated around the right SI joint pain in the right low back musculature as well. However in Michael's is negative. Abdomen is soft and notably overweight and nontender. Normoactive bowel sounds. No masses appreciated. Rectal exam without any stool palpable. Standing later requires him to hold on to the bed rail for discomfort. Extension of the back does markedly exacerbate his pain. Const: Vital Signs, click to edit/add: Vital Signs - 24 hr 06/15/22 16:42 06/15/22 22:19 06/15/22 21:00 Temperature 99.7 F H Pulse Rate [Pulse Oximeter] 61 66 68 Respiratory Rate 18 16 16 Blood Pressure [Ri ght Upper Arm] 172/71 H 148/69 H 151/71 H Pulse Oximetry 99 99 Oxygen Delivery Me thod Room Air Room Air Documenting provider has reviewed patient's vital signs: yes Course Vital Signs Vital signs: Initial Vital Signs Temperature 99.7 F H 06/15/22 16:42 Temperature Source Temporal Artery Scan 06/15/22 16:42 Pulse Rate 61 06/15/22 16:42 Respiratory Rate 18 06/15/22 16:42 Blood Pressure 172/71 H 06/15/22 16:42 Blood Pressure Mean 104 06/15/22 16:42 Pulse Oximetry 99 06/15/22 16:42 Oxygen Delivery Method 06/15/22 16:42 Vital Signs Temperature 99.7 F H 06/15/22 16:42 Pulse Rate 61 06/15/22 16:42 Respiratory Rate 18 06/15/22 16:42 Blood Pressure 172/71 H 06/15/22 16:42 Pulse Oximetry 99 06/15/22 16:42 Oxygen Delivery Method 06/15/22 16:42 Temperature 99.7 F H 06/15/22 16:42 Pulse Rate 66 06/15/22 22:19 Respiratory Rate 16 06/15/22 22:19 Blood Pressure 148/69 H 06/15/22 22:19 Pulse Oximetry 99 06/15/22 21:00 Oxygen Delivery Method 06/15/22 21:00 Medical Decision Making MDM Narrative Medical decision making narrative: At rest is in mild discomfort. Given reproducible nature with movement I would suspect more mechanical low back pain partly brought on by lack of activity and too much time in bed lately. Seems localized around the right SI joint and in the setting of presumed lack of core strength. Does not seem to have colicky nature consistent with nephrolithiasis nor does he have a history of this. With recent events in no imaging of the pelvis and think it is unreasonable to do lumbar spine CT. Looking for a obstructing mass/fluid collection/bony lesion. There are no radicular symptoms. I did review images of CT. Lidoderm patch placed before departure CT findings per Radiology CT lumbar spine without contrast. COMPARISON: None. FINDINGS: Vertebrae: Alignment is normal.? There are no fractures or suspicious bony lesions.? Discs and facet joints: There are diffuse degenerative changes in the disc spaces and facet joints. Extraspinal findings: Paraspinous soft tissues are unremarkable. Scattered atherosclerotic calcifications. IMPRESSION: 1. No acute fracture or subluxation of the lumbar spine. 2. Multilevel degenerative spondylosis. 3. Moderate spinal canal narrowing at L3-L4 and L4-L5. Lab Data Lab results reviewed: Yes I reviewed the patient's lab results Labs: Lab Results 06/15/22 Range/Units 19:35 Urine Color Yellow (Yellow) Urine Appearance Clear (Clear) Urine pH 6.0 (5.0-8.5) Ur Specific [place] <= 1.005 (1.000-1.030) Urine Protein Negative (Negative) Urine Glucose (UA) Negative (Negative) Urine Ketones Negative (Negative) Urine Blood 1+ A (Negative) Urine Nitrite Negative (Negative) Urine Bilirubin Negative (Negative) Urine Urobilinogen 0.2 (0.2-1.0) Ur Leukocyte Esterase Negative (Negative) Urine RBC 2-5 A (0-2) Urine WBC 0-2 (0-5) Ur Squamous Epith Cells None (None-Few) Urine Bacteria None (None) Discharge Plan Discharge Clinical Impression: Low back pain, Sacroiliac joint pain Patient Disposition: Home w/ Parent or Adult Condition: Stable Additional Instructions: If you think this Lidoderm patch was helpful, there are lidocaine patches available [id number] you might try. Stay well-hydrated. See handout on exercises/stretches for sacroiliac pain. You might want to make a handout with your primary care provider in anticipation of physical therapy follow-up. Also can address further needs for pain control. Otherwise could see an osteopathic physician like brittany Santoyo or [place] at the [facility] who also may still do manipulations. A local chiropractor would be another option -- Arnie Israel or Aziza Ramirez would be possibilities. [place] and Flexeril from [employer]. Flexeril more for relaxation. [place] has 325 mg of acetaminophen in it. You can take up to 1000 mg of acetaminophen per dose. I would try some icing -- I like those old-fashioned icing bags -- fill with ice and water. Maybe alternate this with warm packs 2-3 times daily. If you are taking the [place], I would consider combining that with senna given your recent troubles. 1-2 tabs daily. I think also might be a good idea to take MiraLax 1-2 tbsp in liquid every morning over the next week to 2 weeks adjusting to stool consistency. Prescriptions: No Action calcium carbonate-vitamin D3 500 mg-3.125 mcg (125 unit) tablet 1 tab PO DAILY polyethylene glycol 3350 17 gram/dose powder 17 g PO DAILY magnesium oxide 400 mg (241.3 mg magnesium) tablet 400 mg PO DAILY cyanocobalamin (vitamin B-12) 1,000 mcg tablet 5,000 mcg PO DAILY coenzyme Q10 200 mg capsule 200 mg PO QDAY multivitamin Tablet 1 tab PO QDAY escitalopram oxalate 10 mg tablet 10 mg PO DAILY losartan 100 mg tablet 100 mg PO DAILY atorvastatin 80 mg tablet 80 mg PO HS gabapentin 300 mg capsule 300 mg PO QDAY omeprazole 20 mg capsule,delayed release(DR/EC) 20 mg PO BID Qty: 60 0RF Rx Instructions: please note dose increase Follow Up/Referrals: Marquise Contreras MD [Primary Care Provider] - Stand Alone Forms: [employer] Info Instructions
[2022-06-15] MEDS: polyethylene glycoL 3350 17 GM PACK 34 GM PO (21:47)
[2022-06-15 22:19] VITALS: BP 148/69; PULSE 66; RESP 16
[2022-06-15] MEDS: LIDOCAINE 5% PATCH 1 PATCH TRANSDERMA (22:29)
== END 2022-06-15 22:31 | disposition home or self-care (01) ==
PROVIDERS: Emergency Provider Family Medicine; PCP Family Medicine
DX: M54.50 Low back pain, unspecified (principal); M46.1 Sacroiliitis, not elsewhere classified
CPT/HCPCS: 72131; 74019; 81001; 99284; A9270

== ENCOUNTER 2022-06-18 09:10 | Outpatient (CLI) | payer MEDICARE, BC, SELFPAY ==
[2022-06-18 13:15] LABS: Chloride* 105 mmol/L (96-114); Sodium* 143 mmol/L (135-149)
[2022-06-18 13:18] LABS: Blood Urea Nitrogen* 17 mg/dL (7-30); Carbon Dioxide* 29 mmol/L (20-32); Creatinine* 0.9 mg/dL (0.5-1.5); Estimated Glomerular Filt Rate 94 ml/min; Glucose* 117 mg/dL (60-115)
[2022-06-18 13:19] LABS: Calcium* 9.1 mg/dL (8.4-10.6)
[2022-06-18 13:35] LABS: Basophils Absolute Auto 0.07 K/uL (0.00-0.30); Basophils Percent Auto 0.9 % (0.0-3.0); Eosinophils Absolute Auto 0.01 K/uL (0.00-0.50); Eosinophils Percent Auto 0.1 % (0.0-7.0); Hematocrit 33.2 % (37.0-53.0); Hemoglobin* 9.8 gm/dL (13.5-17.5); Immature Granulocytes Abs Auto 0.18 K/uL (0.00-0.30); Immature Granulocytes Pct Auto 2.3 %; Lymphocytes Percent Auto 10.6 % (20-44); Mean Corpuscular HGB Conc 30 gm/dL (32-36); Mean Corpuscular Hemoglobin 22 pg (26-34); Mean Corpuscular Volume 76 fL (80-100); Monocytes Percent Auto 35.3 % (0.0-11.0); Neutrophils Absolute Auto 3.95 K/uL (1.7-7.0); Neutrophils Percent Auto 50.8 % (42.0-72.0); Platelet Count* 103 K/uL (140-440); RDW Coefficient of Variation % 21.3 % (11.5-15.5); Red Blood Count 4.39 m/uL (4.30-5.90); Reticulocyte Hemoglobin Equivi 18.8 pg (29.0-35.0); Reticulocytes Absolute 0.06 # (0.03-0.08); White Blood Count* 7.77 K/uL (4.50-11.00)
[2022-06-18 14:02] LABS: Reticulocyte Percent 1.3 % (0.5-2.0); Slide Review Reflex Yes
[2022-06-18 14:04] LABS: Slide Review Acceptable Review (Acceptable)
== END 2022-06-18 09:11 | disposition home or self-care (01) ==
PROVIDERS: PCP Family Medicine; Visit Provider Family Medicine
DX: D50.9 Iron deficiency anemia, unspecified (principal); D69.6 Thrombocytopenia, unspecified; E78.5 Hyperlipidemia, unspecified
CPT/HCPCS: 80048; 85025; 85045

== ENCOUNTER 2022-08-31 15:52 | Outpatient (CLI) | payer MEDICARE, BC, SELFPAY ==
[2022-08-31 22:15] LABS: Basophils Absolute Auto 0.04 K/uL (0.00-0.30); Basophils Percent Auto 0.6 % (0.0-3.0); Eosinophils Absolute Auto 0.01 K/uL (0.00-0.50); Eosinophils Percent Auto 0.2 % (0.0-7.0); Hematocrit 32.1 % (37.0-53.0); Hemoglobin* 9.7 gm/dL (13.5-17.5); Immature Granulocytes Abs Auto 0.19 K/uL (0.00-0.30); Immature Granulocytes Pct Auto 2.9 %; Lymphocytes Percent Auto 15.5 % (20-44); Mean Corpuscular HGB Conc 30 gm/dL (32-36); Mean Corpuscular Hemoglobin 23 pg (26-34); Mean Corpuscular Volume 75 fL (80-100); Monocytes Percent Auto 31.2 % (0.0-11.0); Neutrophils Absolute Auto 3.21 K/uL (1.7-7.0); Neutrophils Percent Auto 49.6 % (42.0-72.0); Platelet Count* 67 K/uL (140-440); RDW Coefficient of Variation % 15.4 % (11.5-15.5); Red Blood Count 4.29 m/uL (4.30-5.90); White Blood Count* 6.47 K/uL (4.50-11.00)
[2022-08-31 22:24] LABS: Chloride* 105 mmol/L (96-114); Sodium* 140 mmol/L (135-149)
[2022-08-31 22:27] LABS: Creatinine* 0.8 mg/dL (0.5-1.5); Estimated Glomerular Filt Rate 98 ml/min
[2022-08-31 22:28] LABS: Blood Urea Nitrogen* 15 mg/dL (7-30); Calcium* 8.4 mg/dL (8.4-10.6); Carbon Dioxide* 25 mmol/L (20-32); Glucose* 94 mg/dL (60-115); Magnesium* 1.1 mg/dL (1.5-2.6)
[2022-08-31 23:01] LABS: Ferritin* 7.3 ng/mL (17.9-464.0)
[2022-08-31 23:19] LABS: Potassium* 2.8 mmol/L (3.6-5.1)
[2022-08-31 23:58] LABS: Slide Review Reflex Yes
[2022-09-01 00:08] LABS: Slide Review Acceptable Review (Acceptable)
== END 2022-08-31 15:53 | disposition home or self-care (01) ==
PROVIDERS: PCP Family Medicine; Visit Provider Family Medicine
DX: D50.9 Iron deficiency anemia, unspecified (principal); E87.6 Hypokalemia
CPT/HCPCS: 80048; 82728; 83735; 85025

== ENCOUNTER 2022-10-20 08:04 | Outpatient (CLI) | payer MEDICARE, BC, SELFPAY | END 2022-10-20 08:05 | disposition home or self-care (01) | PROVIDERS: PCP Family Medicine; Visit Provider Family Medicine | DX: D50.9 Iron deficiency anemia, unspecified (principal); E83.42 Hypomagnesemia; I10 Essential (primary) hypertension | CPT/HCPCS: 80048; 82728; 83735; 85025 ==

== ENCOUNTER 2023-01-25 15:31 | Outpatient (CLI) | payer MEDICARE, BC, SELFPAY | END 2023-01-25 15:32 | disposition home or self-care (01) | PROVIDERS: PCP Family Medicine; Visit Provider Family Medicine | DX: D50.9 Iron deficiency anemia, unspecified (principal); E83.42 Hypomagnesemia; D69.6 Thrombocytopenia, unspecified; F10.10 Alcohol abuse, uncomplicated | CPT/HCPCS: 80053; 82728; 83690; 83735; 85025 ==

== ENCOUNTER 2023-04-05 15:23 | Outpatient (CLI) | payer MEDICARE, BC, SELFPAY | END 2023-04-05 15:24 | disposition home or self-care (01) | PROVIDERS: PCP Family Medicine; Visit Provider Family Medicine | DX: D50.9 Iron deficiency anemia, unspecified (principal); E83.42 Hypomagnesemia; I10 Essential (primary) hypertension; D64.9 Anemia, unspecified | CPT/HCPCS: 80048; 82728; 83735; 85025 ==

== ENCOUNTER 2023-07-01 11:41 | Outpatient (CLI) | payer MEDICARE, BC, SELFPAY | END 2023-07-01 11:42 | disposition home or self-care (01) | PROVIDERS: PCP Family Medicine; Visit Provider Family Medicine | DX: E78.2 Mixed hyperlipidemia (principal); I10 Essential (primary) hypertension; D50.9 Iron deficiency anemia, unspecified; E83.42 Hypomagnesemia; F10.10 Alcohol abuse, uncomplicated; R53.83 Other fatigue; D69.6 Thrombocytopenia, unspecified | CPT/HCPCS: 80053; 80061; 82728; 83735; 84443; 85025 ==

== ENCOUNTER 2023-07-29 15:23 | Outpatient (CLI) | payer MEDICARE, BC, SELFPAY ==
--- NOTE | 2023-07-29 15:30 | CRLHL7_ITS ---
For Patients: As a result of the Century Cures Act, medical imaging exams and procedure reports are released immediately into your electronic medical record. You may view this report before your referring provider. If you have questions, please contact your health care provider. Indication: Lumbar radiculopathy Technique: Multiplanar, multisequence, MRI of the lumbar spine, obtained without contrast. Comparison: Lumbar spine x-ray 07/19/2023, CT lumbar spine 06/15/2022 Findings: Mild dextroconvex curvature, apex L3-4. Preserved lumbar lordosis. No acute osseus abnormality. Degenerative Modic type 1 signal changes at the opposing L3-4 endplates, and S1 superior endplate. No acute osseus abnormality. Mild degenerative changes at the included SI joints. The conus medullaris terminates at L1, with tortuosity and redundant course of the cauda equina nerve roots at L1. There is diffuse thecal sac effacement beginning at the L1-2 level, with essentially complete loss of intrathecal CSF signal beginning at the mid L2 level, slightly reconstituting at L5-S1, attributed to diffuse epidural lipomatosis and baseline spinal canal narrowing secondary to congenitally short pedicles. T12-L1: No significant neural foraminal or spinal canal stenosis. L1-L2: Mild diffuse disc bulge, epidural lipomatosis, moderate thecal sac effacement. No neural foraminal stenosis. L2-L3: Diffuse disc bulge, mild facet arthropathy, epidural lipomatosis. Mild bilateral neural foraminal narrowing, left worse than right. Thecal sac effacement with absent CSF signal. L3-L4: Diffuse disc bulge, mild facet arthropathy, epidural lipomatosis. Mild right, moderate left neural foraminal stenosis. Thecal sac effacement with absent CSF signal. L4-L5: Diffuse disc bulge, moderate facet arthropathy, epidural lipomatosis. Moderate left, moderately severe right neural foraminal stenosis. Thecal sac effacement with absent CSF signal. L5-S1: Mild diffuse disc bulge, mild right asymmetric facet arthropathy, epidural lipomatosis. No left, mild right neural foraminal narrowing. Near complete thecal sac effacement with trace CSF signal. Impression: 1. Tortuous/redundant course of the cauda equina nerve roots at the L1 level, with diffuse thecal sac effacement beginning at L1-2, and complete loss of intrathecal CSF signal beginning at the mid L2 level extending caudally, slightly reconstituting at L5-S1. This is attributed to diffuse epidural lipomatosis and lumbar spondylosis, superimposed on congenital spinal canal narrowing. 2. Moderate left neural foraminal stenosis at L3-4. Moderate left and moderately severe right neural foraminal stenosis at L4-5. Mild neural foraminal narrowing elsewhere. Dictated by Danita Rollins MD @ 07/30/2023 10:17:06 AM (Electronically Signed)
== END 2023-07-29 15:24 | disposition home or self-care (01) ==
LOC: MRI 15:23
PROVIDERS: PCP Family Medicine; Visit Provider Family Medicine
DX: M54.16 Radiculopathy, lumbar region (principal); M48.061 Spinal stenosis, lumbar region without neurogenic claudication
CPT/HCPCS: 72148

== ENCOUNTER 2023-08-05 10:40 | Outpatient (CLI) | payer MEDICARE, BC, SELFPAY | END 2023-08-05 10:41 | disposition home or self-care (01) | PROVIDERS: PCP Family Medicine; Visit Provider Family Medicine | DX: I10 Essential (primary) hypertension (principal); I50.9 Heart failure, unspecified; D50.9 Iron deficiency anemia, unspecified; E78.5 Hyperlipidemia, unspecified | CPT/HCPCS: 80048; 85025 ==

== ENCOUNTER 2023-08-17 07:40 | Outpatient (CLI) | payer MEDICARE, BC, SELFPAY ==
[2023-08-17 09:28] VITALS: BP 150/72; PULSE 101; RESP 18
[2023-08-17] MEDS: REGADENOSON 0.4 MG/5 ML SYRINGE IVP (09:30)
[2023-08-17] MEDS: SODIUM CHLORIDE 0.9 % (FLUSH) 10 ML SYRINGE IVF (09:30)
--- NOTE | 2023-08-17 11:47 | W.PM.STED ---
Stress Test Note Date Date of test: 08/17/23 Providers Primary care provider: Marquise Contreras Stress test physician: Omar Nino Stress Test Note Stress test ordered: Lexiscan Indication for test: Chest pain Stress test medicine: Lexiscan Results discussion: Patient is a very pleasant 68-year-old gentleman who presents for the above test after discussion the risks benefits side effects he would like to proceed, neck stress test medical history form is reviewed. Pretest EKG shows normal sinus rhythm, with a bigeminal rhythm. Ventricular rate is 86, blood pressure 124/77 standard Lexiscan walking protocol was done for 5 minute. , achieved a metabolic equivalent level 1.6 met he had no chest pain or shortness of breath and recovered normally. During this test there is no ST waves changes suggestive of ischemia a is bigeminal rhythm persisted throughout the the test. Impression: On a negative electrographic portion of Lexiscan Follow up suggested: Await nuclear images these will be read by nuclear Medicine, clinical correlation with these will be needed. Patient left this testing facility, in good condition there were no complications
== END 2023-08-17 10:35 | disposition home or self-care (01) ==
LOC: STRESS 07:41
PROVIDERS: PCP Family Medicine; Visit Provider Family Medicine
DX: R07.9 Chest pain, unspecified (principal)
CPT/HCPCS: 78452; 93016; 93017; A9500; J2785

== ENCOUNTER 2023-11-29 11:34 | Outpatient (CLI) | payer MEDICARE, BC, SELFPAY | END 2023-11-29 11:35 | disposition home or self-care (01) | PROVIDERS: PCP Family Medicine; Visit Provider Family Medicine | DX: D50.9 Iron deficiency anemia, unspecified (principal); E78.2 Mixed hyperlipidemia; E83.42 Hypomagnesemia; K70.0 Alcoholic fatty liver; I10 Essential (primary) hypertension | CPT/HCPCS: 80053; 80061; 82728; 83735; 85025 ==

== ENCOUNTER 2024-03-15 10:13 | Outpatient (CLI) | payer MEDICARE, BC, SELFPAY | END 2024-03-15 10:14 | disposition home or self-care (01) | PROVIDERS: PCP Family Medicine; Visit Provider Family Medicine | DX: E78.2 Mixed hyperlipidemia (principal); I10 Essential (primary) hypertension; K70.0 Alcoholic fatty liver; D50.9 Iron deficiency anemia, unspecified; R53.83 Other fatigue | CPT/HCPCS: 80048; 80076; 84443; 85025 ==

== ENCOUNTER 2024-07-04 10:51 | Outpatient (CLI) | payer MEDICARE, BC, SELFPAY | END 2024-07-04 10:52 | disposition home or self-care (01) | PROVIDERS: PCP Family Medicine; Visit Provider Family Medicine | DX: I10 Essential (primary) hypertension (principal); R53.83 Other fatigue; D50.9 Iron deficiency anemia, unspecified | CPT/HCPCS: 80048; 82728; 85025 ==

== ENCOUNTER 2025-03-27 13:09 | Outpatient (CLI) | payer MEDICARE, BC, SELFPAY | END 2025-03-27 13:10 | disposition home or self-care (01) | PROVIDERS: PCP Family Medicine; Visit Provider Family Medicine | DX: D50.9 Iron deficiency anemia, unspecified (principal); E78.2 Mixed hyperlipidemia | CPT/HCPCS: 80048; 80061; 82728; 84460; 85025 ==